=== PATIENT | female | born 1960 | race Caucasian/White ===

== ENCOUNTER → 2019-01-18 12:59 | Outpatient (CLI) | payer OTHER, SELFPAY ==
[2019-01-18 13:34] LABS: Anion Gap 10 (5-15); BUN 28 mg/dL (7-18); BUN/Creat Ratio 18.2 RATIO (10-20); Calcium,Total 9.2 mg/dL (8.5-10.1); Chloride 104 mmol/L (98-107); Creatinine, Serum 1.54 mg/dL (0.55-1.02); EST Glomerular Filtration Rate 37 mL/min (>60); Est Glom Filt Rate - Afr Amer 45 mL/min (>60); Glucose 298 mg/dL (74-106); Potassium 4.6 mmol/L (3.5-5.1); Sodium Level 139 mmol/L (136-145)
== END ==
PROVIDERS: Referring Provider Internal Medicine; Visit Provider Internal Medicine
DX: N17.9 Acute kidney failure, unspecified (principal)
CPT/HCPCS: 80048

== ENCOUNTER → 2019-01-28 11:00 | Outpatient (CLI) | payer OTHER, SELFPAY ==
--- NOTE | 2019-01-28 11:06 | US_ITS ---
STUDY: RENAL ULTRASOUND - COMPLETE REASON FOR EXAM: Female, 58 years old. Elevated BUN/creatinine TECHNIQUE: Ultrasound evaluation of the kidneys was performed with real-time and static abdalla-scale imaging. COMPARISON: None. FINDINGS: RIGHT KIDNEY: Normal location of the right kidney, which is normal in size. The right kidney measures 9.8 x 5.5 x 4.6 cm. There is a normal cortex of the right kidney. The renal cortex measures 1.1 cm. There is no right renal mass or cyst. Multiple punctate nonobstructing renal calculi. There is no right hydronephrosis. DISTAL RIGHT URETER: There is non-visualization of the distal right ureter. There is no demonstrated right ureterovesical junction calculus. There is a visualized right ureteral jet. LEFT KIDNEY: Normal location of the left kidney, which is normal in size. The left kidney measures 10.5 x 4.1 x 4.2 cm. There is a normal cortex of the left kidney. The renal cortex measures 1.1 cm. There is a 0.9 cm simple cyst , there is a nonobstructing 4 mm stone, and multiple punctate nonobstructing stones.. There is no left hydronephrosis. DISTAL LEFT URETER: There is non-visualization of the distal left ureter. There is no demonstrated left ureterovesical junction calculus. There is a visualized left ureteral jet. AORTA: There is no elongation or tortuosity of the abdominal aorta. I.V.C.: The IVC is patent. BLADDER: The distended urinary bladder has a volume of 104.55 ml. The empty urinary bladder has a volume of less than 5 ml. There is a normal wall thickness of the distended urinary bladder. There is no demonstrated mass within the urinary bladder. There are no demonstrated bladder calculi. US/Kidney and Bladder IMPRESSION: No obstructive uropathy or suspicious solid lesion. Bilateral nonobstructing nephrolithiasis, largest is in the left kidney measuring 0.4 cm. Most are punctate stones. Simple 9 mm left renal cyst Electronically Signed: Neymar Singer MD at 10:26 EST , Service support ,
== END ==
PROVIDERS: Family Provider Internal Medicine; PCP Internal Medicine; Referring Provider Internal Medicine; Visit Provider Internal Medicine
DX: N17.9 Acute kidney failure, unspecified (principal)
CPT/HCPCS: 76770

== ENCOUNTER 2019-04-15 14:33 | Observation (INO) | payer OTHER, SELFPAY ==
[2019-04-15] VITALS (9 sets, daily range): BP systolic 120–154; BP diastolic 64–104; PULSE 80–100; RESP 16–20; TEMP 36.6–36.7; O2SAT 91–96; BMI 43.1; BMI 41.9
--- NOTE | 2019-04-15 14:55 | RAD_ITS ---
STUDY: X-RAY CHEST REASON FOR EXAM: Female, 58 years old. PT HAS HAD EPISODES OF PALPITATIONS, INCREASED WEAKNESS AND SOB WITH ANY PHYSICAL EXCRETION SINCE SAT. TECHNIQUE: PA and lateral views of the chest. COMPARISON: None. FINDINGS: EKG electrodes are seen. Increased markings are seen in the lingular segment of the left upper lobe. This may represent early infiltrate. Follow-up is recommended. There is no demonstrated pleural abnormality. Normal size heart. Normal mediastinum and karthikeyan. Normal visualized pulmonary arteries. Normal visualized aortic arch and descending thoracic aorta. There are diffuse degenerative changes of the visualized thoracic spine. Normal visualized ribs, clavicles, and shoulders. There is no demonstrated abnormality of the visualized soft tissue structures of the upper abdomen. RAD/Chest PA and Lateral IMPRESSION: Increased markings in the lingular segment of the left upper lobe. Early infiltrate should be ruled out. Radiographic follow-up is recommended. Electronically Signed: Wan Haynes, at 15:56 EST , Service support ,
--- NOTE | 2019-04-15 14:55 | EKG12_ITS ---
Test Reason : CP ADMIT Blood Pressure : / mmHG Vent. Rate : 079 BPM Atrial Rate : 079 BPM P-R Int : 134 ms QRS Dur : 080 ms QT Int : 452 ms P-R-T Axes : 033 089 -62 degrees QTc Int : 518 ms Normal sinus rhythm T wave abnormality, consider inferior ischemia T wave abnormality, consider anterolateral ischemia Prolonged QT Abnormal ECG When compared with ECG of 15-APR-2019 14:53, MANUAL COMPARISON REQUIRED, DATA IS UNCONFIRMED Confirmed by BRIDGETTE SANON ([id number]), assistant film editor CANDACE GREY ([id number]) on 04/18/2019 9:53:14 AM Referred By: Jose Calderon Confirmed By:BRIDGETTE SANON
--- NOTE | 2019-04-15 14:56 | ED.VIS.DYS ---
History of Present Illness Chief Complaint: Palpitations Informant: Patient, EMS Onset: Days - 2 Activity at onset: Exertion Timing: Intermittent, Lasts - until rests Quality: Dyspnea on exertion Current Severity: Gone Maximum Severity: Severe Worsened by: Exertion - very light exertion Associated Symptoms: Negative for: Cough Chest Pain: Intermittent, Tightness - mild. exertional only. no discomfort at rest. Narrative: 58-year-old female noticed exertional palpitations and dyspnea and chest discomfort over the last several days. The dyspnea is the most prominent complaint. When she has the palpitations it feels irregular and sometimes fast. She has not felt them when at rest. She does not have a history of cardiac disease except for needing an ablation for SVT long ago. She does not remember ever having a stress test. She denies any recent illness, respiratory symptoms other than what was mentioned above, swelling in her legs, orthopnea. She is from [place], no travel out of the area. No history of DVT or PE. Does not take any anticoagulants for any reason. Due to these acute symptoms in the last couple days, she actually saw her PCP this morning. Once they heard the constellation of symptoms she was having and evaluated her, they did an EKG that showed changes compared with her old one, and promptly transferred her to the emergency department via EMS. - Past Medical History (1) Hyperlipidemia Status: Chronic (2) Hypertension Status: Chronic (3) Type 2 diabetes mellitus Status: Chronic (4) CRI (chronic renal insufficiency) Status: Chronic Past Medical History - Allergies and Home Meds Allergies/Adverse Reactions: Allergies No Known Allergies Allergy (Verified 04/15/19 14:33) Lives: Spouse/ Significant Other Smoking Status: Never smoker Drugs: None Review of Systems General: Reports: Malaise. Denies: Chills, Fever, Sweats Eyes: Denies: Visual changes - bilaterally, Diplopia ENT: Denies: Rhinorrhea, Sore throat Cardiovascular: Reports: Chest pain, Palpitations Respiratory: Reports: Dyspnea, Dyspnea on exertion. Denies: Cough, Orthopnea, Paroxysmal nocturnal dyspnea Gastrointestinal: Denies: Abdominal pain, Nausea, Vomiting, Diarrhea, Melena, Hematochezia Genitourinary: Denies: Dysuria, Hematuria, Frequency Musculoskeletal: Reports: Extremity Pain - 3 days ago left calf pain which resolved. No swelling.. Denies: Neck pain, Back pain, Swelling Skin: Denies: Rash, Wounds Neurological: Denies: Headache, Weakness, Numbness Physical Exam Vital Signs/Narrative: Vital Signs Temp Pulse Resp BP Pulse Ox 04/15/19 14:34 98.1 F 100 16 154/104 H 91 Inital Vital Signs reviewed: Yes General: Well nourished, Well developed, Obese, No Acute Distress Head: Normocephalic, Atraumatic Eyes: Perrl, EOMI ENT: Moist mucous membranes, No rhinorrhea Neck: Supple, Nontender, No JVD Cardiovascular: Regular rate, Regular rhythm, No murmurs, Normal S1, Normal S2. Negative for: Tachycardia Respiratory: No distress, CTA bilaterally - Diminished at bases. Limited due to obesity., Chest nontender Abdomen: Soft, Nontender, Nondistended, Normal bowel sounds Back: Nontender, Normal Inspection Extremities: Nontender, No edema. Negative for: Calf Tenderness Skin: Normal color, No rash, No Trauma Neurological: Alert, Oriented x3, Cranial nerves II-XII grossly intact, Normal Strength, Normal Sensation Psychological: Normal affect, Normal Mood Diagnostic/Tx/Re-eval Impressions Chest X-Ray 04/15/19 14:55 IMPRESSION: Increased markings in the lingular segment of the left upper lobe. Early infiltrate should be ruled out. Radiographic follow-up is recommended. Electronically Signed: Wan Ivy, at 15:56 EST , Service support , 04/15/19 14:55 Chest PA and Lateral [RAD] Stat Laboratory Tests 04/15/19 04/15/19 04/15/19 Range/Units 15:25 15:25 15:25 WBC 8.6 (4.4-11.0) K/mm3 RBC 5.03 (4.2-5.4) M/mm3 Hgb 14.9 (12.0-15.0) g/dL Hct 45.3 (37-47) % MCV 90.1 (81-99) fL MCH 29.6 (27.0-32.0) pg MCHC 32.9 (32-36) g/dL RDW Std Deviation 44.5 H (35.1-43.9) fl RDW Coeff of Gloria 13.8 (11.6-14.6) % Plt Count 190 (150-450) K/mm3 MPV 10.4 (6.2-12.0) fl Immature Gran % (Auto) 0.300 (0.0-0.9) % Neut % (Auto) 62.4 (47-70) % Lymph % (Auto) 29.1 (19-41) % Whitley % (Auto) 5.8 (0-10) % Eos % (Auto) 2.1 (0-5) % Baso % (Auto) 0.3 (0-1) % Absolute Neuts (auto) 5.3 (2.0-7.7) X10^3/uL Absolute Lymphs (auto) 2.50 (0.83-4.51) X10^3/uL Nucleated RBC % 0 (0-5) % D-Dimer Quant (PE/DVT) 6.63 H* (0.27-0.49) FEU/ug/m Sodium 142 (136-145) mmol/L Potassium 3.8 (3.5-5.1) mmol/L Chloride 109 H (98-107) mmol/L Carbon Dioxide 26.0 (21.0-32.0) mmol/L Anion Gap 7 (5-15) BUN 16 (7-18) mg/dL Creatinine 1.31 H (0.55-1.02) mg/dL Estim Creat Clear Calc 37.78 ml/min Est GFR (MDRD) Af Amer 53 L (>60) mL/min Est GFR (MDRD) Non-Af 44 L (>60) mL/min BUN/Creatinine Ratio 12.2 (10-20) RATIO Glucose 212 H (74-106) mg/dL Calcium 9.2 (8.5-10.1) mg/dL Troponin I 0.078 H (<0.045) ng/mL - Rhythm Strip Rhythm Strip: Sinus Rhythm Rate: 90 Ectopy: None - EKG Initial EKG Interpretation: Sinus Rhythm, No Acute Injury Pattern, Inverted T-Waves - Throughout precordium and inferior leads, - - Normal axis. Prolonged QTC. Otherwise normal intervals. Treatment - Dyspnea: - - aspirin - Medical Decision Making Patient is feeling well at rest but her symptoms and risk factors are concerning. Her EKG shows diffuse repolarization abnormalities that appears more focused inferiorly without any ST segment deviations to suggest a STEMI or obvious acute coronary syndrome. She has some nonspecific findings in the lingula of the left lower lobe that may or may not indicate early pneumonia. She denies having a cough recently. Her pulse ox is borderline. Although she does not have any specific risk for pulmonary embolus or DVT, nor clinical findings of a DVT, I obtained a d-dimer and screening for this in addition to other possibilities, and the d-dimer returned very elevated over 6. I discussed with cardiology who agreed with treating her empirically with Lovenox, aspirin, and loading her with Plavix 300 mg which was done in the ER. Discussed with hospitalist, who requests that we obtain a CT angiography of the chest while in the emergency department. Discussed with the patient. We will also hydrate her given her renal insufficiency. CT was performed, the interpretation is not yet performed but it does appear to show bilateral pulmonary emboli without a saddle embolus. Plan will be admission to PCU. We will also obtain duplex Doppler ultrasounds of the lower extremities. ED Disposition - Plan for ED Patient: Disposition: Acute Care Hospital [facility] Diagnosis: Chest pain, Elevated troponin, Acute electrocardiogram changes, Pulmonary embolism, bilateral
--- NOTE | 2019-04-15 15:08 | NURSING ---
NO OLD EKGS
[2019-04-15 15:38] LABS: Absolute Neutrophil Count 5.3 X10^3/uL (2.0-7.7); Basophil# 0.03 X10^3/uL; Basophil% 0.3 % (0-1); Eosinophil# 0.18 X10^3/uL; Eosinophils% 2.1 % (0-5); Hematocrit 45.3 % (37-47); Hemoglobin 14.9 g/dL (12.0-15.0); Lymphocyte % 29.1 % (19-41); Mean Corp Hgb Conc 32.9 g/dL (32-36); Mean Corpuscular Hgb 29.6 pg (27.0-32.0); Mean Corpuscular Volume 90.1 fL (81-99); Mean Platelet Vol. 10.4 fl (6.2-12.0); Monocyte% 5.8 % (0-10); NRBC Flagged by Analyzer 0 % (0-5); Neutrophil # 5.34 X10^3/uL (2.7-7.7); Neutrophil % 62.4 % (47-70); Platelet Count 190 K/mm3 (150-450); RBC Distribution Width CV 13.8 % (11.6-14.6); RBC Distribution Width SD 44.5 fl (35.1-43.9); Red Blood Count 5.03 M/mm3 (4.2-5.4); White Blood Count 8.6 K/mm3 (4.4-11.0)
[2019-04-15 15:53] LABS: Anion Gap 7 (5-15); BUN 16 mg/dL (7-18); BUN/Creat Ratio 12.2 RATIO (10-20); Calcium,Total 9.2 mg/dL (8.5-10.1); Chloride 109 mmol/L (98-107); Creatinine, Serum 1.31 mg/dL (0.55-1.02); EST Glomerular Filtration Rate 44 mL/min (>60); Est Glom Filt Rate - Afr Amer 53 mL/min (>60); Estimated Creatinine Clearance 37.78 ml/min; Glucose 212 mg/dL (74-106); Potassium 3.8 mmol/L (3.5-5.1); Sodium Level 142 mmol/L (136-145)
[2019-04-15 16:23] LABS: D-Dimer Quantitative (DVT/PE) 6.63 FEU/ug/m (0.27-0.49)
[2019-04-15 16:24] LABS: BNP,B-Type NATRIURETIC PEPTIDE 250.5 pg/mL (0-100)
[2019-04-15] MEDS: Aspirin 81 MG TAB.CHEW 324 MG PO (16:30)
--- NOTE | 2019-04-15 16:31 | NURSING ---
PCU OBS CP, ELEVATED TROP KOTSONIS
--- NOTE | 2019-04-15 16:39 | PCM.HP.STD ---
History of Present Illness Date of Admission: 04/15/19 Chief Complaint: SOB and CP The patient is a 58 year old F with no significant past medical history presents with shortness of breath that has been getting worse since about Monday. She does have a history of SVT and had an ablation performed but was noticing some palpitations with exertion that was resolving with rest. She was also noticing some chest pain as well as shortness of breath with exertion that was resolving with rest. She states that she is short of breath generally just because of her weight but this was more significant than it had ever been in the past. Cardiology was contacted by the ER and they recommended aspirin as well as Plavix and Lovenox. Chest x-ray was unremarkable for any significant signs of heart failure, she denies any fevers or chills. She has not had any cough recently. No orthopnea. D-dimer was elevated so she had a chest CT of the chest which is pending, her BNP was slightly elevated. EKG was unremarkable for any significant signs of ischemia. Past Medical History Past Medical History (Chronic Problems): Chronic Problems Hyperlipidemia (Chronic) Hypertension (Chronic) Type 2 diabetes mellitus (Chronic) CRI (chronic renal insufficiency) (Chronic) Allergies No Known Allergies Allergy (Verified 04/15/19 14:33) Home Medications: Ambulatory Orders Medication Instructions Recorded Atorvastatin Calcium [Lipitor] 20 mg PO QHS 04/15/19 Dulaglutide [Trulicity] 1.5 mg SQ TH 04/15/19 Glipizide 10 mg PO BID 04/15/19 Levothyroxine Sodium [Synthroid] 25 mcg PO DAILY 04/15/19 Lisinopril [Zestril] 5 mg PO DAILY 04/15/19 Oxybutynin Chloride [Oxybutynin 20 mg PO DAILY 04/15/19 Chloride ER] Surgical History: hysterectomy Smoking Status: Never smoker Tobacco Use: Non-smoker Alcohol: None Drugs: None - *Family History Maternal History Items: Diabetes Paternal History Items: Diabetes Review of Systems Constitutional: Denies: Chills, Fever, Weight Change HEENT: Denies: Head Aches, Sinus Congestion, Sinus Drainage Cardiovascular: Denies: Chest Pain, Palpitations Respiratory: Reports: Pleuritic Pain, Shortness of Breath. Denies: Cough, Shortness of breath at rest, Sputum production Gastrointestinal: Denies: Abdominal Pain, Nausea, Vomiting Genitourinary: Denies: Dysuria Musculoskeletal: Denies: Joint Pain, Joint Tenderness Skin: Denies: Rash, Wounds Neurological: Denies: Numbness, Tingling, Focal weakness Psychiatric: Denies: Anxiety, Depression Hematologic/ Lymphatic: Denies: Easy Bruising, Easy Bleeding VTE Information - Inpt Only VTE Present on Admission: No Patient Problems: Active and Suspected Problems Chest pain (Acute) Elevated troponin (Acute) Acute electrocardiogram changes (Acute) Pulmonary embolism, bilateral (Acute) - Physical Exam Vitals/I&O's: Vital Signs Temp Pulse Resp BP Pulse Ox 98.1 F 80 18 139/90 H 93 04/15/19 14:34 04/15/19 16:12 04/15/19 16:12 04/15/19 16:12 04/15/19 16:12 Oxygen Flow Rate (L/min) 2 Oxygen Delivery Method Nasal Cannula Weight: 243 lb 6.4 oz Body Mass Index (BMI) 43.1 General: Alert, Oriented x3, Cooperative, No apparent distress HEENT: Atraumatic, PERRLA, EOMI, Normocephalic Oral: Moist Mucosa Neck: Supple, No JVD Lungs: Clear to auscultation, Normal air movement, No rhonchi, No wheeze, No rales, Diminished Cardiovascular: Regular rate, Regular Rhythm, Normal S1, Normal S2, No murmurs Abdomen: Soft, Non Tender, Non-Distended, No Hepato-splenomegaly Extremities: No edema, Capillary Refill Less than 3 Seconds Skin: No rashes, No breakdown Neurological: Neuro grossly intact, Sensory exam intact to light touch and pain Psych/Mental Status: Normal Affect, Appropriate Laboratory Results 04/15/19 15:25: WBC 8.6, RBC 5.03, Hgb 14.9, Hct 45.3, MCV 90.1, MCH 29.6, MCHC 32.9, RDW Std Deviation 44.5 H, RDW Coeff of Gloria 13.8, Plt Count 190, MPV 10.4, Immature Gran % (Auto) 0.300, Neut % (Auto) 62.4, Lymph % (Auto) 29.1, [place] % (Auto) 5.8, Eos % (Auto) 2.1, Baso % (Auto) 0.3, Absolute Neuts (auto) 5.3, Absolute Lymphs (auto) 2.50, Nucleated RBC % 0 04/15/19 15:25: D-Dimer Quant (PE/DVT) 6.63 H* 04/15/19 15:25: Sodium 142, Potassium 3.8, Chloride 109 H, Carbon Dioxide 26.0, Anion Gap 7, BUN 16, Creatinine 1.31 H, Estim Creat Clear Calc 37.78, Est GFR (MDRD) Af Amer 53 L, Est GFR (MDRD) Non-Af 44 L, BUN/Creatinine Ratio 12.2, Glucose 212 H, Calcium 9.2, Troponin I 0.078 H 04/15/19 15:25: B-Natriuretic Peptide 250.5 H Assessment/Plan All Active Problems Chest pain (Acute) Elevated troponin (Acute) Acute electrocardiogram changes (Acute) Pulmonary embolism, bilateral (Acute) 1. Bilateral large pulmonary embolisms on preliminary read, radiology read is still pending -She was given a therapeutic dose of Lovenox, however will likely not need cardiology's involvement as this is the likely source of her chest pain -We will start Eliquis in the morning, 10 mg p.o. twice daily -She does need a hypercoagulable work-up at this time she can follow-up with hematology as an outpatient, she has no history of DVTs in the family -She does not smoke and she is not on control, denies any recent long distance travel 2. HLD/HTN -Can continue with her Lipitor and her lisinopril -An echo is pending to evaluate for the PEs -Troponins are trending but this was done prior to the CTA being done 3. DM 2/CKD 3/morbid obesity -She is on Trulicity and glipizide however she used to be on metformin this was discontinued because of her chronic kidney disease stage III -She should be able to resume her metformin on discharge -Discussed about lifestyle modifications DVT: Eliquis and therapeutic Lovenox Code Visit OBSV E&M: [id number] Initial observation care L3
[2019-04-15] MEDS: Clopidogrel Bisulfate 300 MG Tablet PO (16:41)
--- NOTE | 2019-04-15 16:48 | CT_ITS ---
STUDY: CTA CHEST REASON FOR EXAM: Female, 58 years old. SOB, CHEST PAIN, ELEVATED D-DIMER RADIATION DOSAGE (If Supplied By Facility): CTDIvol = ( 22.16 ) mGy, DLP = ( 477.53 ) mGycm TECHNIQUE: The examination was performed with the intravenous administration of IV 100mL Isovue-370. Post-processing of the angiographic images was performed, with multiplanar reformation and 3D reconstruction. Individualized dose optimization techniques were used for this CT. COMPARISON: Chest x-ray dated April 15, 2019 FINDINGS: There is suboptimal contrast opacification of the pulmonary arteries. Bilateral partially occlusive pulmonary artery emboli are present at the junctions of the main branches in the secondary branches and extends to the small tertiary branches of the upper and lower lobes bilaterally. No demonstrated saddle embolus. The central regions of the main pulmonary arteries are clear as well as the trunk. There is atherosclerotic calcification of the aortic arch with tortuosity. There is no demonstrated aortic dissection. Normal heart size and pericardium. Normal mediastinum. Normal hilar regions. Normal visualized trachea and bronchi. The lungs are well expanded. Mild interstitial scarring is present in both lungs mild irregular consolidation is present in the lingula as well as the anterior superior aspect of the left upper lobe. A small 4.6 mm nodule is present in the superior segment of the right lower lobe see image #119/215. No pleural effusion is present. A 7.5 mm nodule is present in lateral subpleural region of the right middle lobe see image 71/215, a 6.2 mm nodule is present in lateral subpleural region of the right lower lobe see image #71/215. A 4.5 mm nodule is present in the mid aspect and lateral aspect of the right upper lobe see image 89/215. Normal chest wall structures. There are degenerative changes of thoracic spine. Normal visualized upper abdomen. CT/CTA Chest W/WO Contrast IMPRESSION: 1. Extensive bilateral pulmonary artery emboli. 2. Four small nodules of the right middle and lower lobe. Close surveillance and follow-up is required as the nodules could represent malignancy. If there are prior imaging studies demonstrating the presence of these nodules comparison is recommended for stability. 3. Mild irregular consolidation in the left upper lobe and lingula which could be related to pneumonia, however given the presence of extensive pulmonary artery emboli the findings could also be related to infarction. N.B. : The above information has been verbally conveyed by Gil Niño MD to Dr. Kvng MD, on 04/15/2019 18:57:28 (ET). Electronically Signed: Gil Niño MD at 18:58 EST , Service support ,
[2019-04-15] MEDS: 0.9% Normal Saline 1,000 ML 999 ML IV (17:39)
[2019-04-15] MEDS: Enoxaparin 120 MG/0.8 ML Syringe 110 MG SC (17:47)
--- NOTE | 2019-04-15 18:05 | EKG12_ITS ---
Test Reason : DYSRHYTHMIA Blood Pressure : / mmHG Vent. Rate : 090 BPM Atrial Rate : 090 BPM P-R Int : 130 ms QRS Dur : 080 ms QT Int : 400 ms P-R-T Axes : 047 082 -41 degrees QTc Int : 489 ms Sinus rhythm with Premature atrial complexes T wave abnormality, consider inferior ischemia T wave abnormality, consider anterolateral ischemia Prolonged QT Abnormal ECG Confirmed by VIRGINIA STRANGE, HECTOR ([id number]), videotape editor CANDACE GREY ([id number]) on 04/17/2019 9:05:24 AM Referred By: Jose Calderon Confirmed By:HECTOR COLEMAN MD
[2019-04-15] MEDS: 0.9% Normal Saline 1,000 ML 100 ML IV (19:05)
[2019-04-15] MEDS: Insulin Lispro 100 UNIT/ML INSULN.PEN SC (21:36)
[2019-04-16] VITALS (11 sets, daily range): BP systolic 131–147; BP diastolic 77–88; PULSE 76–92; RESP 18; TEMP 36.4–36.7; O2SAT 92–97
[2019-04-16 00:16] LABS: Bedside Glucose 182 mg/dL (70-110)
[2019-04-16] MEDS: 0.9% Normal Saline 1,000 ML 100 ML IV (05:10)
--- NOTE | 2019-04-16 05:55 | ECHOD_ITS ---
Reason For Study: Dyspnea/SOB Procedure This was a 2D Doppler, Color Flow transthoracic echocardiogram. Technically difficult study due to patients body habitus. Unable to utilize Definity due to increased pressures. The study was technically difficult. Exam performed portable in patient room. Left Ventricle Normal LV size. Left ventricular systolic function is normal. The estimated ejection fraction is 60 %. Diastolic function is indeterminate. No regional wall motion abnormalities noted. Right Ventricle Normal RV size. Normal systolic function. Atria Normal left atrium. Normal right atrium. No doppler evidence for ASD. Mitral Valve There is no mitral annular calcification. Normal mitral valve. Trivial mitral valve insufficiency. Tricuspid Valve Normal tricuspid valve. Mild to moderate (1-2+) tricuspid valve insufficiency. Right ventricular systolic pressure estimated to be 82 mmHg. Aortic Valve Trisinus/trileaflet aortic valve. Normal aortic valve. Pulmonic Valve The pulmonic valve is not well visualized. Trivial pulmonic valve insufficiency. Great Vessels Normal sized aortic root. Pericardium/Pleural No pericardial effusion. MMode/2D Measurements & Calculations LVIDd: 4.3 cm IVSd: 1.2 cm Ao root diam: 3.4 cm LVIDs: 2.3 cm LVPWd: 1.2 cm LA dimension: 3.4 cm FS: 47.7 % LAV(MOD-bp): 35.5 ml LA A4 area: 15.0 cm2 RA A4 area: 12.6 cm2 LAV(MOD-bp) Indexed: 17.1 ml/m2 LAV(MOD-sp2): 33.7 ml LAV(MOD-sp4): 33.2 ml Time Measurements MV dec time: 0.23 sec Doppler Measurements & Calculations MV E max chano: 40.8 cm/sec Lat Peak E' Chano: 5.6 cm/sec Med Peak E' Chano: 5.5 cm/sec MV A max chano: 60.5 cm/sec E/E' lat: 7.3 E/E' med: 7.4 MV E/A: 0.67 MV V2 max: 61.9 cm/sec MV P1/2t max chano: 40.0 cm/sec Ao V2 max: 97.4 cm/sec MV max P.5 mmHg MV P1/2t: 88.3 msec Ao max P.8 mmHg MV V2 mean: 29.2 cm/sec MV dec slope: 132.7 cm/sec2 Ao V2 mean: 71.3 cm/sec MV mean P.41 mmHg MVA(P1/2t): 2.5 cm2 Ao mean P.2 mmHg MV V2 VTI: 15.3 cm Ao V2 VTI: 16.8 cm LV V1 max: 89.8 cm/sec PA V2 max: 45.7 cm/sec LV V1 max P.2 mmHg PI dec slope: 181.9 cm/sec2 LV V1 mean P.5 mmHg LV V1 mean: 57.1 cm/sec LV V1 VTI: 16.2 cm TR max chano: 429.9 cm/sec TR max P.9 mmHg Interpretation Summary The study was technically difficult. Left ventricular systolic function is normal. The estimated ejection fraction is 60 %. Trivial mitral valve insufficiency. Mild to moderate (1-2+) tricuspid valve insufficiency. Trivial pulmonic valve insufficiency. Right ventricular systolic pressure estimated to be 82 mmHg c/w severe pulmonary hypertension. Diastolic function is indeterminate. Ordering Physician: Jose Calderon Referring Physician: Jose Calderon Performed By: Zay Carranza RCS
[2019-04-16 06:03] LABS: Absolute Lymphocyte Count 3.22 X10^3/uL (0.83-4.51); Absolute Neutrophil Count 3.4 X10^3/uL (2.0-7.7); Basophil# 0.03 X10^3/uL; Basophil% 0.4 % (0-1); Eosinophil# 0.26 X10^3/uL; Eosinophils% 3.5 % (0-5); Hematocrit 39.9 % (37-47); Hemoglobin 12.8 g/dL (12.0-15.0); Lymphocyte # 3.22 X10^3/ul (4.0); Lymphocyte % 43.8 % (19-41); Mean Corp Hgb Conc 32.1 g/dL (32-36); Mean Corpuscular Hgb 29.3 pg (27.0-32.0); Mean Corpuscular Volume 91.3 fL (81-99); Mean Platelet Vol. 10.7 fl (6.2-12.0); Monocyte# 0.47 X10^3/uL; Monocyte% 6.4 % (0-10); NRBC Flagged by Analyzer 0 % (0-5); Neutrophil # 3.36 X10^3/uL (2.7-7.7); Neutrophil % 45.6 % (47-70); Platelet Count 167 K/mm3 (150-450); RBC Distribution Width CV 13.9 % (11.6-14.6); RBC Distribution Width SD 45.7 fl (35.1-43.9); Red Blood Count 4.37 M/mm3 (4.2-5.4); White Blood Count 7.4 K/mm3 (4.4-11.0)
[2019-04-16 06:36] LABS: Anion Gap 6 (5-15); BUN 14 mg/dL (7-18); BUN/Creat Ratio 11.6 RATIO (10-20); Chloride 112 mmol/L (98-107); Cholesterol 104 mg/dL (200); Creatinine, Serum 1.21 mg/dL (0.55-1.02); EST Glomerular Filtration Rate 48 mL/min (>60); Est Glom Filt Rate - Afr Amer 58 mL/min (>60); Glucose 175 mg/dL (74-106); High Density Lipoprotein 34 mg/dL; Potassium 3.7 mmol/L (3.5-5.1); Sodium Level 142 mmol/L (136-145); Triglycerides 189 mg/dL; Very Low Density Lipoprotein 38 mg/dL (5-40)
[2019-04-16] MEDS: APIXABAN 5 MG TABLET 10 MG PO ×2 (06:50→17:36)
[2019-04-16] MEDS: Insulin Lispro 100 UNIT/ML INSULN.PEN SC ×3 (06:51→17:33)
[2019-04-16 07:06] LABS: Bedside Glucose 164 mg/dL (70-110)
[2019-04-16 11:55] LABS: Bedside Glucose 227 mg/dL (70-110)
--- NOTE | 2019-04-16 13:01 | PCM.PROGNOTE ---
<Antonieta Gallagher - Last Filed: 04/16/19 13:31> Patient Problems: Active and Suspected Problems Chest pain (Acute) Elevated troponin (Acute) Acute electrocardiogram changes (Acute) Pulmonary embolism, bilateral (Acute) Subjective: Patient seen and examined. Continues to have dyspnea with exertion. Denies further chest pain. - Physical Exam Vitals/I&O's: Vital Signs Temp Pulse Resp BP Pulse Ox 97.6 F L 78 18 131/83 H 97 04/16/19 09:25 04/16/19 11:00 04/16/19 09:25 04/16/19 09:25 04/16/19 09:25 Oxygen Flow Rate (L/min) 1.5 Oxygen Delivery Method Room Air Weight: 236 lb 8.896 oz Body Mass Index (BMI) 41.9 Intake and Output for Last 24 Hours 04/14/19 04/15/19 04/16/19 23:59 23:59 23:59 Intake Total 0 / 0 970 / 970 Balance 2129 / 2130 970 / 970 General: Alert, Oriented x3, Cooperative HEENT: Atraumatic, PERRLA, EOMI, Normocephalic Neck: Supple, No JVD, Negative Carotid Bruits Lungs: Clear to auscultation, Diminished Cardiovascular: Regular rate, Regular Rhythm, Normal S1, Normal S2, No murmurs Abdomen: Bowel Sounds Present, Soft, Non Tender, Non-Distended Extremities: No clubbing, No cyanosis, No edema, Capillary Refill Less than 3 Seconds Skin: No rashes, No breakdown Musculoskeletal: No Tenderness to Palpation of Joints or Extremities Neurological: Cranial nerves II-XII grossly intact, Neuro grossly intact Psych/Mental Status: Normal Affect, Appropriate Laboratory Results 04/15/19 15:25: WBC 8.6, RBC 5.03, Hgb 14.9, Hct 45.3, MCV 90.1, MCH 29.6, MCHC 32.9, RDW Std Deviation 44.5 H, RDW Coeff of Gloria 13.8, Plt Count 190, MPV 10.4, Immature Gran % (Auto) 0.300, Neut % (Auto) 62.4, Lymph % (Auto) 29.1, Gulf % (Auto) 5.8, Eos % (Auto) 2.1, Baso % (Auto) 0.3, Absolute Neuts (auto) 5.3, Absolute Lymphs (auto) 2.50, Nucleated RBC % 0 04/15/19 15:25: D-Dimer Quant (PE/DVT) 6.63 H* 04/15/19 15:25: Sodium 142, Potassium 3.8, Chloride 109 H, Carbon Dioxide 26.0, Anion Gap 7, BUN 16, Creatinine 1.31 H, Estim Creat Clear Calc 37.78, Est GFR (MDRD) Af Amer 53 L, Est GFR (MDRD) Non-Af 44 L, BUN/Creatinine Ratio 12.2, Glucose 212 H, Calcium 9.2, Troponin I 0.078 H 04/15/19 15:25: B-Natriuretic Peptide 250.5 H 04/15/19 18:22: Troponin I 0.088 H 04/15/19 21:05: Troponin I 0.065 H 04/15/19 21:31: POC Glucose 182 H 04/16/19 05:20: WBC 7.4, RBC 4.37, Hgb 12.8, Hct 39.9, MCV 91.3, MCH 29.3, MCHC 32.1, RDW Std Deviation 45.7 H, RDW Coeff of Gloria 13.9, Plt Count 167, MPV 10.7, Immature Gran % (Auto) 0.300, Neut % (Auto) 45.6 L, Lymph % (Auto) 43.8 H, Gulf % (Auto) 6.4, Eos % (Auto) 3.5, Baso % (Auto) 0.4, Absolute Neuts (auto) 3.4, Absolute Lymphs (auto) 3.22, Nucleated RBC % 0 04/16/19 05:20: Sodium 142, Potassium 3.7, Chloride 112 H, Carbon Dioxide 24.0, Anion Gap 6, BUN 14, Creatinine 1.21 H, Estim Creat Clear Calc 40.90, Est GFR (MDRD) Af Amer 58 L, Est GFR (MDRD) Non-Af 48 L, BUN/Creatinine Ratio 11.6, Glucose 175 H, Calcium 8.0 L, Triglycerides 189, Cholesterol 104, LDL Cholesterol 32, VLDL Cholesterol 38, HDL Cholesterol 34 L 04/16/19 06:49: POC Glucose 164 H 04/16/19 11:39: POC Glucose 227 H Current Medications Apixaban (Eliquis) 10 mg PO 0600,1800 [facility] Last Admin: 04/16/19 06:50 Dose: 10 mg Documented by: Dextrose (D50w Syringe) 0 gm IV X1 PRN; Protocol PRN Reason: Hypoglycemia Glucagon () 1 mg IM .X1 PRN PRN Reason: Hypoglycemia Sodium Chloride () 1,000 mls @ 100 mls/hr IV .Q10H [facility] Last Admin: 04/16/19 05:10 Dose: 100 mls/hr Documented by: Insulin Human Lispro (Humalog Kwikpen (Bkc)) 0 unit SC ACHS ANY[facility]; Protocol Last Admin: 04/16/19 11:43 Dose: 4 units Documented by: Melatonin (Melatonin) 3 mg PO QHS PRN PRN PRN Reason: INSOMNIA Nitroglycerin (Nitrostat) 0.4 mg SUBLINGUAL Q5M PRN PRN Reason: CARDIAC/CHEST PAIN Ondansetron HCl (Zofran) 4 mg IV Q8H PRN PRN PRN Reason: NAUSEA/VOMITING Medical Necessity - Tobacco Use Smoking Status: Never smoker Tobacco Use: Non-smoker Assessment/Plan All Active Problems Chest pain (Acute) Elevated troponin (Acute) Acute electrocardiogram changes (Acute) Pulmonary embolism, bilateral (Acute) 1. Acute extensive bilateral PE-initiated on Eliquis. No known risk factors for PE. Will need hypercoagulable work-up and outpatient follow-up with hematology. Echocardiogram pending. Walking pulse ox prior to discharge. 2. Right middle and lower lobe lung nodules-CTA demonstrated 4 small nodules of the right middle and lower lobe. Patient will need close outpatient follow-up as these may represent malignancy. Consult pulmonary medicine to establish for further outpatient follow-up/repeat imaging. 3. Indeterminate troponin-did not trend. Suspect demand ischemia as a result of #1. No acute EKG changes. 4. Chronic kidney disease stage III-creatinine appears at baseline although minimal prior labs for comparison. Trend BMP. 5. Type 2 diabetes mellitus-oral regimen on hold. Accu-Cheks with sliding scale insulin. 6. Hypertension-stable, continue lisinopril regimen. 7. Hypothyroidism-continue Synthroid regimen. 8. Hyperlipidemia-continue statin. 9. Morbid obesity-encouraged diet and lifestyle modifications. DVT prophylaxis-Eliquis This patient was seen by MEENA Gaines under the supervision of Dr. Restrepo. <Rosalba Whitfield - Last Filed: 04/16/19 16:55> - Physical Exam Vitals/I&O's: Vital Signs Temp Pulse Resp BP Pulse Ox 97.6 F L 84 18 147/85 H 97 04/16/19 15:25 04/16/19 15:40 04/16/19 15:25 04/16/19 15:25 04/16/19 15:25 Oxygen Flow Rate (L/min) 1.5 Oxygen Delivery Method Nasal Cannula Weight: 107.3 kg Body Mass Index (BMI) 41.9 Intake and Output for Last 24 Hours 04/14/19 04/15/19 04/16/19 23:59 23:59 23:59 Intake Total 2129 1861.67 / 186.67 Balance 2129. / 1860. Laboratory Results 04/15/19 18:22: Troponin I 0.088 H 04/15/19 21:05: Troponin I 0.065 H 04/15/19 21:31: POC Glucose 182 H 04/16/19 05:20: WBC 7.4, RBC 4.37, Hgb 12.8, Hct 39.9, MCV 91.3, MCH 29.3, MCHC 32.1, RDW Std Deviation 45.7 H, RDW Coeff of Gloria 13.9, Plt Count 167, MPV 10.7, Immature Gran % (Auto) 0.300, Neut % (Auto) 45.6 L, Lymph % (Auto) 43.8 H, Gulf % (Auto) 6.4, Eos % (Auto) 3.5, Baso % (Auto) 0.4, Absolute Neuts (auto) 3.4, Absolute Lymphs (auto) 3.22, Nucleated RBC % 0 04/16/19 05:20: Sodium 142, Potassium 3.7, Chloride 112 H, Carbon Dioxide 24.0, Anion Gap 6, BUN 14, Creatinine 1.21 H, Estim Creat Clear Calc 40.90, Est GFR (MDRD) Af Amer 58 L, Est GFR (MDRD) Non-Af 48 L, BUN/Creatinine Ratio 11.6, Glucose 175 H, Calcium 8.0 L, Triglycerides 189, Cholesterol 104, LDL Cholesterol 32, VLDL Cholesterol 38, HDL Cholesterol 34 L 04/16/19 06:49: POC Glucose 164 H 04/16/19 11:39: POC Glucose 227 H Current Medications Apixaban (Eliquis) 10 mg PO 0600,1800 [facility] Last Admin: 04/16/19 06:50 Dose: 10 mg Documented by: Dextrose (D50w Syringe) 0 gm IV X1 PRN; Protocol PRN Reason: Hypoglycemia Glucagon () 1 mg IM .X1 PRN PRN Reason: Hypoglycemia Insulin Human Lispro (Humalog Kwikpen (Bkc)) 0 unit SC ACHS [facility]; Protocol Last Admin: 04/16/19 11:43 Dose: 4 units Documented by: Melatonin (Melatonin) 3 mg PO QHS PRN PRN PRN Reason: INSOMNIA Nitroglycerin (Nitrostat) 0.4 mg SUBLINGUAL Q5M PRN PRN Reason: CARDIAC/CHEST PAIN Ondansetron HCl (Zofran) 4 mg IV Q8H PRN PRN PRN Reason: NAUSEA/VOMITING Assessment/Plan This patient was seen in conjunction with Antonieta Gallagher UI LEAD DEVELOPER. I have independently interviewed and examined the patient and reviewed pertinent historical, laboratory, and other data. Please refer to her note for patient's presentation, findings, and recommendations. Patient was seen and examined. She remains on 3 L of oxygen. Doppler ultrasound of the left lower extremity is positive for left peroneal DVT Denies any chest pain or dizziness Vitals were reviewed -stable Physical Exam: Gen: Wheeze, on 3 L of oxygen, comfortable,, not pale, not jaundiced, alert oriented x3 CVS:HS I +II, regular, no murmurs RESP: Diminished at lung bases GI: BS present and normal, nontender, no palpable organs EXT:No edema Labs reviewed: ASSESSMENT: 1. Acute extensive bilateral PE, history of left lower extremity DVT 3. Right middle and lower lobe nodules 3. Indeterminant troponin 4. CKD stage III 5. Type II DM 6. Hypertension 7. Hypothyroidism 8. Hyperlipidemia 9. With obesity Meds reviewed Plan: Continue on Eliquis Continue to wean off oxygen for more than 94%, encourage incentive spirometer Code Visit Inpatient E&M: 26712 Subs Hosp L2
--- NOTE | 2019-04-16 13:09 | VDLE_ITS ---
Reason For Study: Pulmonary embolism RIGHT LEFT GSV is normal. GSV is normal. CFV is compressible, spontaneous, phasic, CFV is compressible, spontaneous, phasic, competent and demonstrates normal competent, and demonstrates normal augmentation. augmentation. FV is compressible, spontaneous, phasic, FV is compressible, spontaneous, phasic, competent and demonstrates normal competent and demonstrates normal augmentation. augmentation. POP V is compressible, spontaneous, phasic, POP V is compressible, spontaneous, phasic, competent and demonstrates normal competent and demonstrates normal augmentation. augmentation. T/P Trunk is compressible. T/P Trunk is compressible. PTV is compressible. PTV is compressible. RT PerV is compressible. Acute deep vein thrombosis is noted in the Procedure left peroneal vein. Exam performed in department. A preliminary report was called and/or faxed to [facility]. Interpretation Summary There is no evidence of right lower extremity deep vein thrombosis. Right great saphenous vein appears patent and compressible segmentally. Acute deep venous thrombosis left peroneal vein Patent and compressible left great saphenous vein Ordering Physician: Antonieta Gallagher Referring Physician: Magali Curran M.D. Performed By: Theresa Lyn RVT
--- NOTE | 2019-04-16 15:36 | PCM.CONS.PUL ---
Reason for Consult Date of Consultation: 04/16/19 Reason for Consultation: Submassive PE History of Present Illness: The patient is a 58 year old F, with past medical history listed below, who presented was [facility] on 04/15/2019 secondary to exertional dyspnea and palpitations. Patient felt that her palpitations were irregular and sometimes fast. These were made worse with exertion. Patient denied any recent illness, respiratory symptoms, constitutional symptoms such as fever, chills, nausea or vomiting. Patient had noted some swelling in her legs and some orthopnea. Patient did report that she travels to [place] frequently to babysit her grandchildren. Patient denied any previous history of blood clots such as DVT or PE. Patient does not take any anticoagulants. Patient states that she had a hysterectomy in the past. Patient has never had a colonoscopy and has not completed occult blood studies. Patient does report that she gets her mammograms regularly. In the ER, patient's d-dimer was elevated at 6.63 and creatinine was noted at 1.31. Troponin was slightly elevated 0.078 and BNP was elevated. Patient had borderline pulse oximetry. Patient was treated empirically and CTA of the chest was obtained showing extensive bilateral PEs. Patient was admitted to the floor for further evaluation. Given concerns for hypoxia and submassive PE, pulmonary consult was obtained. 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 Patient does state that she tends to take frequent trips to [place], but also has had decreased activity recently secondary to complications associated with the varicella vaccine. Patient had noted some left lower extremity pain and slight swelling, but did not seek any medical attention. Patient denies any history of previous blood clots. No family history of blood clots have been reported. Patient denies any history of positive TB testing. Patient does report that she has had dyspnea on exertion for quite some time, but thought this was just secondary to obesity. Patient has never seen a client development consultant or had pulmonary function testing. Patient is not treated for sleep apnea at this time. Review of systems otherwise negative from a constitutional, HEENT, respiratory, cardiovascular, GI, genitourinary, musculoskeletal, skin, neurologic, psychiatric and hematologic system unless stated above. Past Medical History Past Medical History (Chronic Problems): Chronic Problems Hyperlipidemia (Chronic) Hypertension (Chronic) Type 2 diabetes mellitus (Chronic) CRI (chronic renal insufficiency) (Chronic) Allergies No Known Allergies Allergy (Verified 04/15/19 14:33) Home Medications: Ambulatory Orders Medication Instructions Recorded Atorvastatin Calcium [Lipitor] 20 mg PO QHS 04/15/19 Dulaglutide [Trulicity] 1.5 mg SQ TH 04/15/19 Glipizide 10 mg PO BID 04/15/19 Levothyroxine Sodium [Synthroid] 25 mcg PO DAILY 04/15/19 Lisinopril [Zestril] 5 mg PO DAILY 04/15/19 Oxybutynin Chloride [Oxybutynin 20 mg PO DAILY 04/15/19 Chloride ER] Apixaban [Eliquis] 10 mg PO 0600,1800 #72 tab 04/16/19 Surgical History: hysterectomy Lives: Spouse/ Significant Other Smoking Status: Never smoker Tobacco Use: Non-smoker Alcohol: None Drugs: None - *Family History Maternal History Items: Diabetes Paternal History Items: Diabetes Review of Systems Comment: See HPI Patient Problems: Active and Suspected Problems Chest pain (Acute) Elevated troponin (Acute) Acute electrocardiogram changes (Acute) Pulmonary embolism, bilateral (Acute) Objective: Echocardiogram shows an EF of 60% with no regional wall motion abnormalities. No ASD was appreciated. Pulmonary artery systolic pressure estimated at 82 mmHg. Renal ultrasound shows no obstructive uropathy with a simple left renal cyst. Many punctate stones noted Patient with no previous pulmonary function tests available for review. - Physical Exam Vitals/I&O's: Vital Signs Temp Pulse Resp BP Pulse Ox 36.4 C L 78 18 131/83 H 97 04/16/19 09:25 04/16/19 11:00 04/16/19 09:25 04/16/19 09:25 04/16/19 09:25 Oxygen Flow Rate (L/min) 1.5 Oxygen Delivery Method Room Air Weight: 107.3 kg Body Mass Index (BMI) 41.9 Intake and Output for Last 24 Hours 04/14/19 04/15/19 04/16/19 23:59 23:59 23:59 Intake Total 2129 1861.67 / 1860.67 Balance 2129. / General: Alert, Oriented x3, Cooperative, No apparent distress, - - Morbidly obese. Speaking in full sentences. Nasal cannula in place. HEENT: Atraumatic, PERRLA, EOMI, Normocephalic, - - Slight scleral injection without icterus Oral: Moist Mucosa, No Gingival or Mucosal Lesions/ Ulcerations Neck: Supple, No JVD, No Nodes, Trachea Midline Lungs: No rhonchi, No wheeze, No rales, Diminished, - - Symmetric expansion. No dullness to percussion. Cardiovascular: Regular rate, Regular Rhythm, Normal S1, Murmur - Grade 2 out of 6 diastolic murmur noted in the left sternal border, No rub noted, No Gallop, - - Splitting of S2 noted. Abdomen: Bowel Sounds Present, Soft, Non Tender, Non-Distended, Obese Extremities: No clubbing, No cyanosis, Edema - Trace left lower extremity Skin: No rashes, No breakdown Musculoskeletal: No Tenderness to Palpation of Joints or Extremities Lymphatic: No Cervical, Supraclavicular, or Inguinal Adenopathy Neurological: Cranial nerves II-XII grossly intact, Neuro grossly intact, Motor Exam 5/5 strength throughout Psych/Mental Status: Alert and oriented to time, place, person, mood and affect Laboratory Results 04/15/19 15:25: WBC 8.6, RBC 5.03, Hgb 14.9, Hct 45.3, MCV 90.1, MCH 29.6, MCHC 32.9, RDW Std Deviation 44.5 H, RDW Coeff of Gloria 13.8, Plt Count 190, MPV 10.4, Immature Gran % (Auto) 0.300, Neut % (Auto) 62.4, Lymph % (Auto) 29.1, Sandoval % (Auto) 5.8, Eos % (Auto) 2.1, Baso % (Auto) 0.3, Absolute Neuts (auto) 5.3, Absolute Lymphs (auto) 2.50, Nucleated RBC % 0 04/15/19 15:25: D-Dimer Quant (PE/DVT) 6.63 H* 04/15/19 15:25: Sodium 142, Potassium 3.8, Chloride 109 H, Carbon Dioxide 26.0, Anion Gap 7, BUN 16, Creatinine 1.31 H, Estim Creat Clear Calc 37.78, Est GFR (MDRD) Af Amer 53 L, Est GFR (MDRD) Non-Af 44 L, BUN/Creatinine Ratio 12.2, Glucose 212 H, Calcium 9.2, Troponin I 0.078 H 04/15/19 15:25: B-Natriuretic Peptide 250.5 H 04/15/19 18:22: Troponin I 0.088 H 04/15/19 21:05: Troponin I 0.065 H 04/15/19 21:31: POC Glucose 182 H 04/16/19 05:20: WBC 7.4, RBC 4.37, Hgb 12.8, Hct 39.9, MCV 91.3, MCH 29.3, MCHC 32.1, RDW Std Deviation 45.7 H, RDW Coeff of Gloria 13.9, Plt Count 167, MPV 10.7, Immature Gran % (Auto) 0.300, Neut % (Auto) 45.6 L, Lymph % (Auto) 43.8 H, Sandoval % (Auto) 6.4, Eos % (Auto) 3.5, Baso % (Auto) 0.4, Absolute Neuts (auto) 3.4, Absolute Lymphs (auto) 3.22, Nucleated RBC % 0 04/16/19 05:20: Sodium 142, Potassium 3.7, Chloride 112 H, Carbon Dioxide 24.0, Anion Gap 6, BUN 14, Creatinine 1.21 H, Estim Creat Clear Calc 40.90, Est GFR (MDRD) Af Amer 58 L, Est GFR (MDRD) Non-Af 48 L, BUN/Creatinine Ratio 11.6, Glucose 175 H, Calcium 8.0 L, Triglycerides 189, Cholesterol 104, LDL Cholesterol 32, VLDL Cholesterol 38, HDL Cholesterol 34 L 04/16/19 06:49: POC Glucose 164 H 04/16/19 11:39: POC Glucose 227 H Current Medications Apixaban (Eliquis) 10 mg PO 0600,1800 [facility] Last Admin: 04/16/19 06:50 Dose: 10 mg Documented by: Dextrose (D50w Syringe) 0 gm IV X1 PRN; Protocol PRN Reason: Hypoglycemia Glucagon () 1 mg IM .X1 PRN PRN Reason: Hypoglycemia Insulin Human Lispro (Humalog Kwikpen (Bkc)) 0 unit SC ACHS [facility]; Protocol Last Admin: 04/16/19 11:43 Dose: 4 units Documented by: Melatonin (Melatonin) 3 mg PO QHS PRN PRN PRN Reason: INSOMNIA Nitroglycerin (Nitrostat) 0.4 mg SUBLINGUAL Q5M PRN PRN Reason: CARDIAC/CHEST PAIN Ondansetron HCl (Zofran) 4 mg IV Q8H PRN PRN PRN Reason: NAUSEA/VOMITING Clinical Impression(s) from Imaging Studies Chest X-Ray 04/15/19 14:55 IMPRESSION: Increased markings in the lingular segment of the left upper lobe. Early infiltrate should be ruled out. Radiographic follow-up is recommended. Electronically Signed: Wan Ivy, at 15:56 EST , Service support , Chest CTA 04/15/19 16:48 IMPRESSION: 1. Extensive bilateral pulmonary artery emboli. 2. Four small nodules of the right middle and lower lobe. Close surveillance and follow-up is required as the nodules could represent malignancy. If there are prior imaging studies demonstrating the presence of these nodules comparison is recommended for stability. 3. Mild irregular consolidation in the left upper lobe and lingula which could be related to pneumonia, however given the presence of extensive pulmonary artery emboli the findings could also be related to infarction. N.B. : The above information has been verbally conveyed by Gli Niño MD to Dr. Kvng MD, on 04/15/2019 18:57:28 (ET). Electronically Signed: Gil Niño MD at 18:58 EST , Service support , ADDENDUM: 04/15/19 1905 IMPRESSION: 1. Extensive bilateral pulmonary artery emboli. 2. Four small nodules of the right middle and lower lobe. Close surveillance and follow-up is required as the nodules could represent malignancy. If there are prior imaging studies demonstrating the presence of these nodules comparison is recommended for stability. 3. Mild irregular consolidation in the left upper lobe and lingula which could be related to pneumonia, however given the presence of extensive pulmonary artery emboli the findings could also be related to infarction. N.B. : The above information has been verbally conveyed by Gli Niño MD to Dr. Kvng MD, on 04/15/2019 18:57:28 (ET). Electronically Signed: Gil Niño MD at 18:58 EST , Service support , Assessment/Plan All Active Problems Chest pain (Acute) Elevated troponin (Acute) Acute electrocardiogram changes (Acute) Pulmonary embolism, bilateral (Acute) RECOMMENDATIONS: 1. Continue anticoagulation 2. Walking oximetry prior to discharge 3. Outpatient complete pulmonary function test 4. Repeat CT scan of the chest in 4 months 5. Outpatient colonoscopy and other age-appropriate cancer surveillance 6. Follow-up with nurse practitioner 2 weeks after discharge. IMPRESSIONS: 1. Acute hypoxic respiratory insufficiency secondary to submassive PE Patient with elevated troponins, BNP and pulmonary artery pressures. Patient will need a repeat echocardiogram in 4 to 6 weeks to document resolution. Given high pulmonary artery pressures, there is some concern the patient may require supplemental oxygen with exertion. Patient would be at high risk for exertional hypoxemia. PEs do account for scattered groundglass, possible nodules and indeterminate troponin. 2. Pulmonary nodules Patient with several subcentimeter nodules noted on CT scan of the chest. These are peripherally located and may indicate small infarcts versus possible metastasis. Patient has not had a colonoscopy or fecal occult blood. Investigation as an outpatient would be appropriate. We will repeat CT scan in 3 to 4 months to see if there is resolution of nodules. 3. CKD stage III/diabetes mellitus/hypertension/hypothyroidism/hyperlipidemia/morbid obesity Complicates care, management, recovery and prognosis. Code Visit [id number]: [id number] Critical care first hour
--- NOTE | 2019-04-16 15:45 | CASEMGMT ---
AZUCENA CM Note: Call to [facility]. Eliquis is no cost for first 30 days, and then copay would be $80 and eligible for the copay card. Pt was updated and copay card was given to her and explained. Pt states she received text message from her insurance stating the Eliquis would be over $500, but per [facility] (called second time to verify)- they ran the claim through and copay was $80. Pt did not have further questions. Julian ARMSTRONG RN ACM
[2019-04-16 18:06] LABS: Bedside Glucose 210 mg/dL (70-110)
[2019-04-16 22:26] LABS: Bedside Glucose 147 mg/dL (70-110)
[2019-04-17] VITALS (8 sets, daily range): BP systolic 145–149; BP diastolic 92–93; PULSE 66–80; RESP 16–18; TEMP 36.4; O2SAT 89–96
[2019-04-17] MEDS: APIXABAN 5 MG TABLET 10 MG PO (06:44)
[2019-04-17 06:55] LABS: Bedside Glucose 142 mg/dL (70-110)
--- NOTE | 2019-04-17 09:45 | PN_ITS ---
Patient Problems: Active and Suspected Problems Chest pain (Acute) Elevated troponin (Acute) Acute electrocardiogram changes (Acute) Pulmonary embolism, bilateral (Acute) Subjective: Patient did well overnight. No acute issues were reported. Patient was on minimal nasal cannula oxygen this morning and still reporting some dyspnea on exertion, but subjectively felt improved. No bleeding has been reported - Physical Exam Vitals/I&O's: Vital Signs Temp Pulse Resp BP Pulse Ox 36.4 C L 77 18 149/92 H 92 04/17/19 03:25 04/17/19 07:05 04/17/19 03:25 04/17/19 03:25 04/17/19 08:50 Oxygen Flow Rate (L/min) 2 Oxygen Delivery Method Room Air Weight: 107.3 kg Body Mass Index (BMI) 41.9 Intake and Output for Last 24 Hours 04/15/19 04/16/19 04/17/19 23:59 23:59 23:59 Intake Total 2130 / 2130 2461.67 / 2461.67 100 / 100 Balance 2130 / 2130 2461.67 / 2461.67 100 / 100 General: Alert, Oriented x3, Cooperative, No apparent distress, - - Morbidly obese. Speaking in full sentences. HEENT: Atraumatic, PERRLA, EOMI, Normocephalic, - - No scleral icterus or injection noted Oral: Moist Mucosa, No Gingival or Mucosal Lesions/ Ulcerations, - - Crowded posterior pharynx Neck: Supple, No JVD, No Nodes, Trachea Midline Lungs: No rhonchi, No wheeze, No rales, Diminished, - - Symmetric expansion. No dullness to percussion. Cardiovascular: Regular rate, Regular Rhythm, Normal S1, Normal S2, Murmur, No rub noted, No Gallop Abdomen: Bowel Sounds Present, Soft, Non Tender, Non-Distended, Obese Extremities: No clubbing, No cyanosis, Capillary Refill Less than 3 Seconds, Edema Skin: No rashes, No breakdown Musculoskeletal: No Tenderness to Palpation of Joints or Extremities Lymphatic: No Cervical, Supraclavicular, or Inguinal Adenopathy Neurological: Cranial nerves II-XII grossly intact, Neuro grossly intact, Motor Exam 5/5 strength throughout Psych/Mental Status: Alert and oriented to time, place, person, mood and affect Laboratory Results 04/16/19 11:39: POC Glucose 227 H 04/16/19 17:29: POC Glucose 210 H 04/16/19 22:14: POC Glucose 147 H 04/17/19 06:48: POC Glucose 142 H Current Medications Apixaban (Eliquis) 10 mg PO 0600,1800 [facility] Last Admin: 04/17/19 06:44 Dose: 10 mg Documented by: Dextrose (D50w Syringe) 0 gm IV X1 PRN; Protocol PRN Reason: Hypoglycemia Glucagon () 1 mg IM .X1 PRN PRN Reason: Hypoglycemia Insulin Human Lispro (Humalog Kwikpen (Bkc)) 0 unit SC ACHS [facility]; Protocol Last Admin: 04/17/19 06:49 Dose: Not Given Documented by: Melatonin (Melatonin) 3 mg PO QHS PRN PRN PRN Reason: INSOMNIA Nitroglycerin (Nitrostat) 0.4 mg SUBLINGUAL Q5M PRN PRN Reason: CARDIAC/CHEST PAIN Ondansetron HCl (Zofran) 4 mg IV Q8H PRN PRN PRN Reason: NAUSEA/VOMITING Medical Necessity - Tobacco Use Smoking Status: Never smoker Tobacco Use: Non-smoker Assessment/Plan All Active Problems Chest pain (Acute) Elevated troponin (Acute) Acute electrocardiogram changes (Acute) Pulmonary embolism, bilateral (Acute) RECOMMENDATIONS: 1. Continue anticoagulation for at least 6 months 2. Walking oximetry prior to discharge 3. Outpatient complete pulmonary function test 4. Repeat CT scan of the chest in 4 months 5. Outpatient colonoscopy and other age-appropriate cancer surveillance 6. Follow-up with nurse practitioner 2 weeks after discharge. IMPRESSIONS: 1. Acute hypoxic respiratory insufficiency secondary to submassive PE Patient with elevated troponins, BNP and pulmonary artery pressures. Marion ent will need a repeat echocardiogram in 4 to 6 weeks to document resolution. Given high pulmonary artery pressures, there is some concern the patient may require supplemental oxygen with exertion. Walking oximetry has been ordered. PEs may account for scattered groundglass, possible nodules and indeterminate troponin. However would recommend repeat CT scan in 4 months to ensure resolution. 2. Pulmonary nodules Patient with several subcentimeter nodules noted on CT scan of the chest. These are peripherally located and may indicate small infarcts versus possible metastasis. Patient has not had a colonoscopy or fecal occult blood. Investigation as an outpatient would be appropriate. We will repeat CT scan in 3 to 4 months to see if there is resolution of nodules. 3. CKD stage III/diabetes mellitus/hypertension/hypothyroidism/hyperlipidemia/morbid obesity Complicates care, management, recovery and prognosis. Code Visit Inpatient E&M: 73684 Subs Hosp L2
[2019-04-17] MEDS: Insulin Lispro 100 UNIT/ML INSULN.PEN SC (10:43)
--- NOTE | 2019-04-17 11:14 | DCINST_ITS ---
- Discharge Diagnoses Current Active Problems: Current Active and Chronic Problems Hyperlipidemia (Chronic) Hypertension (Chronic) Type 2 diabetes mellitus (Chronic) CRI (chronic renal insufficiency) (Chronic) Pulmonary embolism, bilateral (Acute) You will use the following diet at home:: Calorie/Carbohydrate Controlled (specify 1200, 1400, etc), Cardiac Discharge Activity: Return to Normal Activity Call your doctor if you observe: Shortness of breath, Dizziness, Fainting spells, Chest pain Additional Instructions: We discussed referral for nephrology and female urology. Please see options below if you wish to transition to a different provider. Allergies/Adverse Reactions: Allergies No Known Allergies Allergy (Verified 04/15/19 14:33) Medications to take at Discharge Atorvastatin Calcium [Lipitor] 20 mg PO QHS 04/15/19 Dulaglutide [Trulicity] 1.5 mg SQ TH 04/15/19 Glipizide 10 mg PO BID 04/15/19 Levothyroxine Sodium [Synthroid] 25 mcg PO DAILY 04/15/19 Oxybutynin Chloride [Oxybutynin Chloride ER] 20 mg PO DAILY 04/15/19 Apixaban [Eliquis] 10 mg PO 0600,1800 #72 tab 04/16/19 Lisinopril [Zestril] 10 mg PO DAILY #30 tab 04/17/19 The following prescriptions were given: Apixaban [Eliquis] 10 mg PO 0600,1800 #72 tab Transmission Status: Received by [facility] Lisinopril [Zestril] 10 mg PO DAILY #30 tab Transmission Status: Pending to [facility] Primary Care Physician: Magali Curran DO [Primary Care Provider] - Please follow up with your Primary Care Physician in: 1 Week Test Results: Test results from this visit will be discussed in further detail at your follow- up appointment, if applicable. Please Follow Up With: Abena Melchor NP-C - Dr. Giles- Pulmonary office When: 2 Weeks Please Follow Up With: Malena Sanchez MD - Female urology When: [phone] Please Follow Up With: June Guzman DO - Nephrology When: [phone] Proposed Discharge Date: 04/17/19
--- NOTE | 2019-04-17 11:19 | DS.PCM_ITS ---
<Antonieta Gallagher - Last Filed: 04/17/19 12:10> Discharge Date and Diagnosis Date of Admission: 04/15/19 Date of Discharge: 04/17/19 - Primary Discharge Diagnosis Active and Suspected Problems 1. Acute extensive bilateral PE 2. Right middle and lower lobe lung nodules 3. Indeterminate troponin-did not trend. Suspect demand ischemia as a result of #1. No acute EKG changes. 4. Chronic kidney disease stage III 5. Type 2 diabetes mellitus 6. Hypertension 7. Hypothyroidism 8. Hyperlipidemia 9. Morbid obesity 10. Suspected DAVID - Secondary Discharge Diagnosis Chronic Problems Hyperlipidemia (Chronic) Hypertension (Chronic) Type 2 diabetes mellitus (Chronic) CRI (chronic renal insufficiency) (Chronic) Hospital Course and Treatment Imaging Results: Diagnostic Data Chest X-Ray 04/15/19 14:55 IMPRESSION: Increased markings in the lingular segment of the left upper lobe. Early infiltrate should be ruled out. Radiographic follow-up is recommended. Electronically Signed: Wan Haynes, at 15:56 EST , Service support , Chest CTA 04/15/19 16:48 IMPRESSION: 1. Extensive bilateral pulmonary artery emboli. 2. Four small nodules of the right middle and lower lobe. Close surveillance and follow-up is required as the nodules could represent malignancy. If there are prior imaging studies demonstrating the presence of these nodules comparison is recommended for stability. 3. Mild irregular consolidation in the left upper lobe and lingula which could be related to pneumonia, however given the presence of extensive pulmonary artery emboli the findings could also be related to infarction. N.B. : The above information has been verbally conveyed by Gil Niño MD to Dr. Kvng MD, on 04/15/2019 18:57:28 (ET). Electronically Signed: Gil Niño MD at 18:58 EST , Service support , ADDENDUM: 04/15/19 1905 IMPRESSION: 1. Extensive bilateral pulmonary artery emboli. 2. Four small nodules of the right middle and lower lobe. Close surveillance and follow-up is required as the nodules could represent malignancy. If there are prior imaging studies demonstrating the presence of these nodules comparison is recommended for stability. 3. Mild irregular consolidation in the left upper lobe and lingula which could be related to pneumonia, however given the presence of extensive pulmonary artery emboli the findings could also be related to infarction. N.B. : The above information has been verbally conveyed by Gil Niño MD to Dr. Kvng MD, on 04/15/2019 18:57:28 (ET). Electronically Signed: Gil Niño MD at 18:58 EST , Service support , Dr. Giles- Pulmonary Medicine Operations: None Procedures: 2-D Echocardiogram Summary of Care Provided: The patient is a 58 year old F admitted 04/15/2019 due to shortness of breath and chest pain. 1. Acute extensive bilateral PE-initiated on Eliquis, patient will take 10 mg twice daily for 7 days followed by 5 mg twice daily. Will need hypercoagulable work-up as outpatient. Echocardiogram demonstrates an EF of 60%, mild to mo derate tricuspid valve insufficiency, RVSP estimated to be 82 mmHg. Patient did not qualify for supplemental oxygen at discharge however pulmonary medicine recommending short-term supplemental oxygen given PA pressure 80 mmHg. Patient will decide if she would like to pay [id number] to have short-term supplemental oxygen at home for use with ambulation. Follow-up with pulmonary medicine in 2 weeks. Patient also needs follow-up with primary care provider for colonoscopy/fecal occult blood and routine preventative screening. 2. Right middle and lower lobe lung nodules-CTA demonstrated 4 small nodules of the right middle and lower lobe. Dr. Giles, pulmonary medicine consulted during admission. Follow-up with Abena Melchor NP in 2 weeks. Patient will need repeat CT scan in 4 months to follow nodules. 3. Indeterminate troponin-did not trend. Suspect demand ischemia as a result of #1. No acute EKG changes. 4. Chronic kidney disease stage III-creatinine appears at baseline although minimal prior labs for comparison. Trend BMP. 5. Type 2 diabetes mellitus-continue home regimen. 6. Hypertension-mildly elevated during admission, home lisinopril regimen increased to 10 mg daily. Further outpatient monitoring. 7. Hypothyroidism-continue Synthroid regimen. 8. Hyperlipidemia-continue statin. 9. Morbid obesity-encouraged diet and lifestyle modifications. 10. Suspected DAVID-patient was referred for sleep study in the past which she has not yet completed. Follow-up with pulmonary medicine as noted above. Recommend outpatient sleep study. General: Alert, Oriented x3, Cooperative HEENT: Atraumatic, PERRLA, EOMI, Normocephalic Neck: Supple, No JVD, Negative Carotid Bruits Lungs: Clear to auscultation, Diminished Cardiovascular: Regular rate, Regular Rhythm, Normal S1, Normal S2, No murmurs Abdomen: Bowel Sounds Present, Soft, Non Tender, Non-Distended Extremities: No clubbing, No cyanosis, No edema, Capillary Refill Less than 3 Seconds Skin: No rashes, No breakdown Musculoskeletal: No Tenderness to Palpation of Joints or Extremities Neurological: Cranial nerves II-XII grossly intact, Neuro grossly intact Psych/Mental Status: Normal Affect, Appropriate Patient seen and examined prior to discharge. Physical assessment as noted above. Patient is stable for discharge with follow up recommendations as noted above. This patient was seen by MEENA Gaines under the supervision of Dr. Restrepo. - Physical Exam Vitals/I&O's: Vital Signs Temp Pulse Resp BP Pulse Ox 97.6 F L 77 18 149/92 H 93 04/17/19 03:25 04/17/19 07:05 04/17/19 03:25 04/17/19 03:25 04/17/19 10:19 Oxygen Flow Rate (L/min) 2 Oxygen Delivery Method Room Air Weight: 236 lb 8.896 oz Body Mass Index (BMI) 41.9 Intake and Output for Last 24 Hours 04/15/19 04/16/19 04/17/19 23:59 23:59 23:59 Intake Total 2129 / 0 2461.67 / 2461.67 100 / 100 Balance 213 / 0 2461.67 / 2461.67 100 / 100 Laboratory Results 04/16/19 11:39: POC Glucose 227 H 04/16/19 17:29: POC Glucose 210 H 04/16/19 22:14: POC Glucose 147 H 04/17/19 06:48: POC Glucose 142 H Current Medications Apixaban (Eliquis) 10 mg PO 0600,1800 [facility] Last Admin: 04/17/19 06:44 Dose: 10 mg Documented by: Dextrose (D50w Syringe) 0 gm IV X1 PRN; Protocol PRN Reason: Hypoglycemia Glucagon () 1 mg IM .X1 PRN PRN Reason: Hypoglycemia Insulin Human Lispro (Humalog Kwikpen (Bkc)) 0 unit SC [facility]; Protocol Last Admin: 04/17/19 10:43 Dose: 4 units Documented by: Melatonin (Melatonin) 3 mg PO QHS PRN PRN PRN Reason: INSOMNIA Nitroglycerin (Nitrostat) 0.4 mg SUBLINGUAL Q5M PRN PRN Reason: CARDIAC/CHEST PAIN Ondansetron HCl (Zofran) 4 mg IV Q8H PRN PRN PRN Reason: NAUSEA/VOMITING Discharge Diet: Low fat/ Low Cholesterol, 1800 Calorie Control Diet, Carb Control Diet Discharge Activity: Return to Normal Activity Call your doctor if you observe: Shortness of breath, Dizziness, Fainting spells, Chest pain Home Medications: Medications to take at Discharge Atorvastatin Calcium [Lipitor] 20 mg PO QHS 04/15/19 Dulaglutide [Trulicity] 1.5 mg SQ TH 04/15/19 Glipizide 10 mg PO BID 04/15/19 Levothyroxine Sodium [Synthroid] 25 mcg PO DAILY 04/15/19 Oxybutynin Chloride [Oxybutynin Chloride ER] 20 mg PO DAILY 04/15/19 Apixaban [Eliquis] 10 mg PO 0600,1800 #72 tab 04/16/19 Lisinopril [Zestril] 10 mg PO DAILY #30 tab 04/17/19 Following Prescrptions Were Given to Patient: Apixaban [Eliquis] 10 mg PO 0600,1800 #72 tab Transmission Status: Received by [facility] Lisinopril [Zestril] 10 mg PO DAILY #30 tab Transmission Status: Received by [facility] Primary Care Physician: Magali Curran DO [Primary Care Provider] - Please follow up with your Primary Care Physician in: 1 Week Please Follow Up With: Abena Melchor NP-C - Dr. Giles- Pulmonary office When: 2 Weeks Please Follow Up With: Malena Sanchez MD - Female urology When: [phone] Please Follow Up With: June Guzman DO - Nephrology When: [phone] Disposition: Home Minutes spent on discharge:: 35 Patient Condition:: Stable Medical Necessity - Tobacco Use Smoking Status: Never smoker Tobacco Use: Non-smoker Meaningful Use Info Meaningful Use Diagnoses (Choose all that apply): VTE - VTE Anticoag overlap given w/in hospital stay or rx'd at dc?: Yes Pt receive overlap for 5 days?: Yes <Rosalba Whitfield - Last Filed: 04/19/19 09:08> Discharge Date and Diagnosis - Secondary Discharge Diagnosis Chronic Problems Hyperlipidemia (Chronic) Hypertension (Chronic) Type 2 diabetes mellitus (Chronic) CRI (chronic renal insufficiency) (Chronic) Hospital Course and Treatment Summary of Care Provided: This patient was seen in conjunction with Antonieta Gallagher NP. I have independently interviewed and examined the patient and reviewed pertinent historical, laboratory, and other data. Please refer to her note for patient's presentation, findings, and recommendations. 58-year-old female past medical history of type II DM, hypertension, hypothyroidism, morbid obesity who comes in with progressive shortness of breath found to have acute extensive bilateral PE on CT of the chest. Patient was managed on Lovenox and transitioned to Eliquis. Her EF on 2D echo was 60%, RV. Patient required oxygen. She was kept on routine treatment with use of incentive spirometer. She did not qualify for oxygen at discharge. She will follow-up with her primary care doctor as well as a pharmacology professor in the outpatient. She was discharged on Eliquis. On the day of discharge, patient was seen and examined. She denied any new complaints. Physical Exam: Gen: AO x3, comfortable, on 2L oxygen, not pale, not jaundiced, alert oriented x3 CVS:HS I +II, regular, no murmurs RESP: Diminished at lung bases GI: BS present and normal, nontender, no palpable organs EXT:No edema - Physical Exam Vitals/I&O's: Vital Signs Temp Pulse Resp BP Pulse Ox 97.6 F L 80 16 145/93 H 92 04/17/19 12:19 04/17/19 12:19 04/17/19 12:19 04/17/19 12:19 04/17/19 12:19 Oxygen Flow Rate (L/min) 2 Oxygen Delivery Method Room Air Weight: 107.3 kg Body Mass Index (BMI) 41.9 Intake and Output for Last 24 Hours 04/17/19 04/18/19 04/19/19 23:59 23:59 23:59 Intake Total 100 / 100 Balance 100 / 100 Code Visit OBSV E&M: 90421 Observation care discharge
[2019-04-17 11:45] LABS: Bedside Glucose 222 mg/dL (70-110)
--- NOTE | 2019-04-17 12:17 | PHA.DC.MC ---
Pharmacy Service has performed discharge medication reconciliation and counseling for this patient. 1. APIXABAN 10MG PO BID X 6 DAYS THEN 5MG PO BID THEREAFTER The patient's discharge medication list was reviewed for discrepancies and discrepancies were resolved. Home Medications Atorvastatin Calcium [Lipitor] 20 mg PO QHS 04/15/19 Dulaglutide [Trulicity] 1.5 mg SQ TH 04/15/19 Glipizide 10 mg PO BID 04/15/19 Levothyroxine Sodium [Synthroid] 25 mcg PO DAILY 04/15/19 Oxybutynin Chloride [Oxybutynin Chloride ER] 20 mg PO DAILY 04/15/19 Apixaban [Eliquis] 10 mg PO 0600,1800 #72 tab 04/16/19 Lisinopril [Zestril] 10 mg PO DAILY #30 tab 04/17/19 The patient was counseled on the following discharge medications and changes in medications for homegoing were reviewed. The Reason for Use, instructions for use, and potential side effects were reviewed for all new medications. The patient's questions regarding all of their medications were answered. The patient was able to verbally demonstrate an understanding of their discharge medications.
--- NOTE | 2019-04-17 12:31 | CASEMGMT ---
Pt does not qualify for home oxygen at this time per Adilia ZENG. This RN CM to room to discuss this as pt is curious about out of pocket cost for home oxygen at this time. This RN CM answered all pt questions and provided list of local DME companies at this time. This also went over [employer] co-pay card with instructions for activation, voices understanding. Pt states she may get a pulse ox for home and just monitor her oxygen levels until f/u with pulmonary. Pt to let Adilia ZENG know if she would like to pay out of pocket for oxygen prior to discharge. Pt states that she already feels much better since she came in. Pt voices no further questions/concerns/needs at this time. Geovanni ZENG CM
== END 2019-04-17 11:15 | disposition home or self-care (01) ==
LOC: ED 16:23 → PCU 16:35
PROVIDERS: Admitting Provider Family Medicine; Emergency Provider Emergency Medicine; PCP Internal Medicine; Referring Provider Family Medicine; Visit Provider Internal Medicine
DX: I26.99 Other pulmonary embolism without acute cor pulmonale (principal); I12.9 Hypertensive chronic kidney disease with stage 1 through stage 4 chronic kidney disease, or unspecified chronic kidney disease; E11.22 Type 2 diabetes mellitus with diabetic chronic kidney disease; N18.3 Chronic kidney disease, stage 3 (moderate); I08.1 Rheumatic disorders of both mitral and tricuspid valves; E78.5 Hyperlipidemia, unspecified; E66.01 Morbid (severe) obesity due to excess calories; E03.9 Hypothyroidism, unspecified; R91.8 Other nonspecific abnormal finding of lung field; Z68.41 Body mass index [BMI] 40.0-44.9, adult; Z71.3 Dietary counseling and surveillance; Z79.899 Other long term (current) drug therapy; Z79.84 Long term (current) use of oral hypoglycemic drugs; Z86.718 Personal history of other venous thrombosis and embolism; R94.31 Abnormal electrocardiogram [ECG] [EKG]
CPT/HCPCS: 36415; 71046; 71275; 80048; 80061; 82962; 83880; 84484; 85025; 85379; 93005; 93306; 93970; 96360; 96361; 96372; 99218; 99285; J7030; Q9957; Q9967; A4216; G0378

== ENCOUNTER 2019-04-20 09:58 | Emergency (ER) | payer OTHER, SELFPAY ==
[2019-04-15 18:16] VITALS: BMI 41.9
[2019-04-20 09:59] VITALS: BP 165/92; PULSE 84; RESP 18; TEMP 36.9; O2SAT 92; BMI 42.7
[2019-04-20 10:14] VITALS: BP 158/93; PULSE 87; RESP 34; O2SAT 94
--- NOTE | 2019-04-20 10:21 | EKG12_ITS ---
Test Reason : Blood Pressure : / mmHG Vent. Rate : 089 BPM Atrial Rate : 089 BPM P-R Int : 160 ms QRS Dur : 080 ms QT Int : 386 ms P-R-T Axes : 032 -10 -33 degrees QTc Int : 469 ms Normal sinus rhythm T wave abnormality, consider inferior ischemia T wave abnormality, consider anterolateral ischemia Prolonged QT Abnormal ECG Confirmed by RICHARD STRANGE, JHONATAN ([id number]), avid editor CANDACE GREY ([id number]) on 04/22/2019 2:12:38 PM Referred By: EVE Confirmed By:REGGIE RAMOS MD
[2019-04-20 10:34] LABS: Absolute Lymphocyte Count 2.62 X10^3/uL (0.83-4.51); Absolute Neutrophil Count 8.4 X10^3/uL (2.0-7.7); Basophil# 0.04 X10^3/uL; Basophil% 0.3 % (0-1); Eosinophil# 0.13 X10^3/uL; Eosinophils% 1.1 % (0-5); Hematocrit 43.4 % (37-47); Hemoglobin 14.2 g/dL (12.0-15.0); Lymphocyte # 2.62 X10^3/ul (4.0); Lymphocyte % 21.9 % (19-41); Mean Corp Hgb Conc 32.7 g/dL (32-36); Mean Corpuscular Hgb 29.3 pg (27.0-32.0); Mean Corpuscular Volume 89.7 fL (81-99); Mean Platelet Vol. 10.2 fl (6.2-12.0); Monocyte# 0.74 X10^3/uL; Monocyte% 6.2 % (0-10); NRBC Flagged by Analyzer 0 % (0-5); Neutrophil # 8.39 X10^3/uL (2.7-7.7); Neutrophil % 70.1 % (47-70); Platelet Count 274 K/mm3 (150-450); RBC Distribution Width CV 13.8 % (11.6-14.6); RBC Distribution Width SD 44.6 fl (35.1-43.9); Red Blood Count 4.84 M/mm3 (4.2-5.4)
[2019-04-20] MEDS: 0.9% Normal Saline 1,000 ML 150 ML IV (10:46)
[2019-04-20] MEDS: Ondansetron 4 MG/2 ML Vial IV ×2 (10:47→13:06)
[2019-04-20] MEDS: Morphine 4 MG/ML Syringe IV ×2 (10:47→13:06)
[2019-04-20 10:50] VITALS: BP 166/91; PULSE 89; RESP 32; O2SAT 90
[2019-04-20 10:51] VITALS: RESP 26; O2SAT 95
[2019-04-20 10:53] LABS: Anion Gap 7 (5-15); BUN 18 mg/dL (7-18); BUN/Creat Ratio 13.8 RATIO (10-20); Calcium,Total 9.6 mg/dL (8.5-10.1); Chloride 107 mmol/L (98-107); EST Glomerular Filtration Rate 44 mL/min (>60); Est Glom Filt Rate - Afr Amer 54 mL/min (>60); Estimated Creatinine Clearance 38.07 ml/min; Glucose 151 mg/dL (74-106); Potassium 3.5 mmol/L (3.5-5.1); Sodium Level 140 mmol/L (136-145)
--- NOTE | 2019-04-20 11:20 | CT_ITS ---
STUDY: CTA CHEST REASON FOR EXAM: Female, 58 years old. BACK/CHEST PAIN, HX PE 04/15/2019 RADIATION DOSAGE (If Supplied By Facility): CTDIvol = ( 12.66 ) mGy, DLP = ( 475.64 ) mGycm TECHNIQUE: The examination was performed with the intravenous administration of IV 100mL Isovue-300. Post-processing of the angiographic images was performed, with multiplanar reformation and 3D reconstruction. Individualized dose optimization techniques were used for this CT. COMPARISON: 04/15/2019 FINDINGS: Bilateral partially occlusive pulmonary artery emboli are redemonstrated at the junctions of the main branches extending into multiple segmental branches. There is slight reduction of thrombus burden; for instance left upper lobe segmental branch image 128 comparing to image 127 of the prior study. RV: LV ratio measures less than 1 (no evidence of right heart strain). There is atherosclerotic calcification of the aortic arch with tortuosity. 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 There is no demonstrated aortic dissection. Normal heart size and pericardium. Normal mediastinum. Normal hilar regions. Normal visualized trachea and bronchi. The lungs are under expanded. Increasing atelectasis of the bilateral lower lobes but no cavitating entity. Localized opacity in the anterior left upper lobe is decreasing. A small 4-5 mm nodule is present in the superior segment of the right lower lobe on image 138 of series 2, stable. A 6-7 mm nodule is present in lateral subpleural region of the right middle lobe see image image #80. The lateral right lower lobe nodule on image 71 of the prior study is obscured due to atelectasis. 3-4 mm nodule in the lateral right lower lobe on image 106 is stable, when directly compared side by side. Normal chest wall structures. No sizable pleural effusion. There are degenerative changes of thoracic spine. Normal visualized upper abdomen. CT/CTA Chest W/WO Contrast IMPRESSION: 1. Redemonstration of significant bilateral pulmonary artery emboli with only slight reduction in thrombus burden. No saddle embolus. No CT evidence of right heart strain. 2. Grossly similar (short term follow-up) nodules detailed above, one of which is obscured by atelectasis. 3. Decreasing left upper lobe localized consolidation/pneumonia. Electronically Signed: Keith Peterson MD ([place]) at 12:20 EST , Service support ,
[2019-04-20 12:51] LABS: Bacteria 0 SEEN /hpf (None Seen); Mucous, Urine 0 SEEN /hpf (<or=2+); Red Blood Cells-Urine 0 SEEN /hpf (0-5); White Blood Cells 0 SEEN /hpf (0-5)
[2019-04-20 12:54] LABS: Color, Urine Yellow (Yellow); Glucose, Dipstick Normal (Normal); Ketone-Dipstick Negative (Negative); Leukocyte Esterase-Dipstick Negative /ul (Negative); Nitrite-Dipstick Negative (Negative); Occult Blood-Urine Negative /ul (Negative); Protein-Dipstick Negative (Negative); Specific Gravity, Urine 1.015 (1.002-1.030); Urine Bilirubin Dipstick Negative (Negative); Urine Clarity Clear (Clear); Urine Urobilinogen Normal (Normal)
--- NOTE | 2019-04-20 12:59 | ED.DCSUM_ITS ---
- ER Visit Summary Date of Service: 04/20/19 Chief Complaint: [Back pain] History of Present Illness: The patient is a 58 F [presents to the emergency department complaint of back pain that started yesterday. Patient states the pain initially was intermittent but now is continuous. Describes it as in her right upper back. Patient has intermittent sharp stabbing pains that at times radiate through to the front of the chest. Denies any trauma to her back. Patient states that she was recently discharged from the hospital after being diagnosed with pulmonary emboli. Patient at that time was seen for shortness of breath. Patient denies any difficulty breathing at this time. Patient states that she did check her pulse ox in the middle the night and at times it was 88 to 90% but with getting up and moving around and got up into the 90s low 90s. Patient denies any fever or cough. She denies any hemoptysis.] Physical Examination: [HEENT-PERRLA, EOMI. Cranial nerves II through XII grossly intact. TMs clear. Mucous membranes moist. No adenopathy. Cardiovascular-regular rate and rhythm without murmur or ectopy Lungs-clear to auscultation, chest wall stable without crepitus or subcu emphysema Abdomen-normoactive bowel sounds, soft, nontender, no rebound or rigidity, no peritoneal signs. Back exam-patient has tenderness to palpation over the right upper paraspinal musculature that seems to reproduce her pain. No real CVA tenderness on exam. Negative straight leg raises. Deep tendon reflexes are plus 2 out of 4 bilaterally at the patella and Achilles. Patient has normal 5 extension. Extremities-intact ?4, normal range of motion, normal pulses, atraumatic] Test Results: [EKG obtained arrival shows sinus rhythm with a ventricular rate of [address] changes noted. Troponin was less than 0.015. CBC with differential showed a white count 12.0, hemoglobin 14, hematocrit 43, platelets 274. Chemistries unremarkable. Glucose was 151. Repeat CT scan of the chest with IV contrast showed bilateral PEs with slight reduction in thrombus burden. Patient had improving/resolving left upper lobe infiltrate. Nothing else significant on exam. Analysis was unremarkable.] Emergency Department Course and Treatment: [Was medicated with morphine and Zofran and she did have pain relief with that. After returning from CT her pain returned and she received another dose of morphine and Zofran.] Treatment Plan: [Patient will be given a prescription for [place] for pain. Patient advised to follow-up with her primary care physician 3 to 5 days.] Disposition: [Discharged home in stable condition] Impression: [Back pain] This note was generated with [employer] dictation software. It may contain incorrect words, spelling, and punctuation that were not noted in review of the chart prior to signing ED Disposition - Plan for ED Patient: Referrals: Magali Curran DO [Primary Care Provider] -
[2019-04-20 13:00] LABS: Squamous Epithelial Cells - UA 0-5 SEEN /hpf (5-10)
--- NOTE | 2019-04-20 13:03 | DCINST.ED_ITS ---
ED Disposition - Plan for ED Patient: Instructions: BACK PAIN (Acute or Chronic) Prescriptions: Hydrocodone Bitart/Apap 5-325 [[place] 5MG-325MG] 1 tablet PO Q4H PRN PRN 2 Days #15 tablet PRN Reason: Pain Transmission Status: Received by [id number] Referrals: Magali Curran DO [Primary Care Provider] - 3-5 Days
--- NOTE | 2019-04-20 13:03 | ED.DEP ---
ED Disposition - Plan for ED Patient: Instructions: BACK PAIN (Acute or Chronic) Prescriptions: Hydrocodone Bitart/Apap 5-325 [[place] 5MG-325MG] 1 tablet PO Q4H PRN PRN 2 Days #15 tablet PRN Reason: Pain Transmission Status: Received by [id number] Referrals: Magali Curran DO [Primary Care Provider] - 3-5 Days
[2019-04-20 13:10] VITALS: BP 121/74; PULSE 84; RESP 19; O2SAT 98
[2019-04-20 13:21] VITALS: BP 144/78; PULSE 93; RESP 21; TEMP 37; O2SAT 96
== END 2019-04-20 13:22 | disposition home or self-care (01) ==
LOC: ED 10:39
PROVIDERS: Emergency Provider Emergency Medicine; PCP Internal Medicine
DX: M54.6 Pain in thoracic spine (principal); I26.99 Other pulmonary embolism without acute cor pulmonale; I10 Essential (primary) hypertension; E78.00 Pure hypercholesterolemia, unspecified; Z79.02 Long term (current) use of antithrombotics/antiplatelets; Z79.899 Other long term (current) drug therapy
CPT/HCPCS: 71275; 80048; 81001; 84484; 85025; 93005; 96361; 96374; 96375; 96376; 99283; J7030; Q9967; A4216; J2405

== ENCOUNTER → 2019-04-25 | Outpatient (CLI) | payer OTHER, SELFPAY ==
[2019-04-22 12:29] VITALS: BMI 42.7
== END | disposition home or self-care (01) ==
LOC: SL 10:22
PROVIDERS: PCP Internal Medicine; Referring Provider Nurse Practitioner Acute Care; Visit Provider Nurse Practitioner Acute Care
DX: R06.02 Shortness of breath (principal)
CPT/HCPCS: 94762

== ENCOUNTER → 2019-05-15 20:00 | Outpatient (CLI) | payer OTHER, SELFPAY ==
[2019-05-02 11:20] VITALS: BMI 42.7
== END ==
PROVIDERS: PCP Internal Medicine; Referring Provider Nurse Practitioner Acute Care; Visit Provider Nurse Practitioner Acute Care
DX: G47.33 Obstructive sleep apnea (adult) (pediatric) (principal)
CPT/HCPCS: 95810

== ENCOUNTER → 2019-07-30 | Outpatient (CLI) | payer OTHER, SELFPAY ==
[2019-05-02 11:20] VITALS: BMI 42.7
== END | disposition home or self-care (01) ==
LOC: SL 13:10
PROVIDERS: PCP Internal Medicine; Visit Provider Nurse Practitioner Acute Care
DX: Z46.89 Encounter for fitting and adjustment of other specified devices (principal)

== ENCOUNTER → 2019-08-15 | Outpatient (CLI) | payer OTHER, SELFPAY ==
[2019-05-02 11:20] VITALS: BMI 42.7
--- NOTE | 2019-08-15 12:58 | CT_ITS ---
STUDY: CT CHEST WITHOUT CONTRAST REASON FOR EXAM: Female, 58 years old. FOLLOW UP LUNG NODULE, RECENT HX PE''S, HX DM RADIATION DOSAGE (If Supplied By Facility): CTDIvol = ( 20.04 ) mGy, DLP = ( 672.78 ) mGycm TECHNIQUE: Transaxial imaging was performed without the administration of intravenous contrast material. Multiplanar coronal and sagittal images were reformatted. Individualized dose optimization techniques were used for this CT. COMPARISON: Comparison is made with prior study dated April 20, 2019. FINDINGS: Stable benign-appearing bilateral axillary lymph nodes. Since prior study, there has been improved aeration at the lung bases. Mild residual changes persist. Stable appearance of the small nodules in the right lung. Mild degree of scarring in the anterior aspect of the lingular segment of the left upper lobe as well as the medial anterior aspect of the right middle lobe. There is no demonstrated pleural abnormality. Normal heart and pericardium. There are multiple small lymph nodes within the mediastinum, which are normal in size and morphology most compatible with reactive lymph hyperplasia. Normal hilar regions. Normal unenhanced pulmonary arteries. There is atherosclerotic calcification of the aortic arch . There are multi-level degenerative changes of the thoracic spine. There is no demonstrated abnormality of the visualized upper abdomen. CT/Chest without Contrast IMPRESSION: There has been improved aeration of the lung bases as compared to prior study. Stable appearance of the number and size of the pulmonary nodule seen in the right lung. Electronically Signed: Wan Haynes, at 14:51 EDT , Service support ,
--- NOTE | 2019-08-15 12:58 | ECHOCS_ITS ---
Reason For Study: DYSPNEA Procedure This was a 2D Doppler, Color Flow transthoracic echocardiogram. The study was technically difficult. Contrast injection was performed. Exam performed in department. Left Ventricle Normal LV size. The estimated ejection fraction is 60 %. Diastolic function is indeterminate. No regional wall motion abnormalities noted. Right Ventricle Normal right ventricle. Normal systolic function. Atria Normal left atrium. Normal right atrium. No doppler evidence for ASD. Mitral Valve There is no mitral valve stenosis. No mitral valve insufficiency. Tricuspid Valve There is no tricuspid stenosis. Trivial tricuspid valve insufficiency. Pulmonary artery systolic pressure is 30 mmHg. Aortic Valve Trisinus/trileaflet aortic valve. There is no aortic stenosis. No aortic valve insufficiency. Pulmonic Valve There is no pulmonic valvular stenosis. No pulmonic valve insufficiency. Great Vessels Normal aortic root. Pericardium/Pleural No pericardial effusion. Medication 22 gauge I.V. with prn adaptor inserted into right arm. Diluted definity 3.0ml given slow IV push to enhance endocardial definition. MMode/2D Measurements & Calculations LVIDd: 5.0 cm IVSd: 0.83 cm Ao root diam: 3.2 cm LVIDs: 3.2 cm LVPWd: 0.87 cm RVDd: 2.9 cm FS: 35.8 % LAV(MOD-bp): 41.1 ml EDV(MOD-sp4): 71.6 ml EDV(MOD-sp2): 52.6 ml LAV(MOD-bp) Indexed: 19.8 ml/m2 ESV(MOD-sp4): 41.2 ml EF(MOD-sp2): 41.9 % LAV(MOD-sp2): 36.3 ml EF(MOD-sp4): 42.4 % LAV(MOD-sp4): 42.3 ml SV(MOD-sp4): 30.3 ml SV(MOD-sp2): 22.0 ml LA A4 area: 16.1 cm2 LA dimension(2D): 3.4 cm RA A4 area: 14.7 cm2 Time Measurements MV dec time: 0.22 sec Doppler Measurements & Calculations MV E max chano: 45.1 cm/sec Lat Peak E' Chano: 6.1 cm/sec Med Peak E' Chano: 5.0 cm/sec MV A max chano: 55.7 cm/sec E/E' lat: 7.4 E/E' med: 9.0 MV E/A: 0.81 Ao V2 max: 102.7 cm/sec LV V1 max: 89.3 cm/sec TR max chano: 314.1 cm/sec Ao max P.2 mmHg LV V1 max P.2 mmHg TR max P.5 mmHg Interpretation Summary The estimated ejection fraction is 60 %. Diastolic function is indeterminate. The study was technically difficult. Contrast injection was performed. Ordering Physician: Abena Melchor Referring Physician: EMERALD WIGGINS Performed By: Jojo Rosario, CHRIS, RVT
== END | disposition home or self-care (01) ==
LOC: CVS 12:58
PROVIDERS: PCP Internal Medicine; Referring Provider Nurse Practitioner Acute Care; Visit Provider Nurse Practitioner Acute Care
DX: R06.02 Shortness of breath (principal); R06.00 Dyspnea, unspecified
CPT/HCPCS: 71250; 93306; Q9957; A4216; C8929

== ENCOUNTER → 2020-01-19 13:41 | Outpatient (CLI) | payer OTHER, SELFPAY ==
[2019-05-02 11:20] VITALS: BMI 42.7
--- NOTE | 2020-01-19 13:53 | RAD_ITS ---
STUDY: X-RAY - LUMBOSACRAL SPINE REASON FOR EXAM: Female, 59 years old. PAIN IN LOWER BACK FOR AT LEAST A YEAR OR MORE GETTING WORSE. NO KNOWN RECENT INJURY. TECHNIQUE: 7 view(s) of the lumbosacral spine were obtained. COMPARISON: None FINDINGS: Normal lumbar lordosis. There are 6 lumbar type vertebral bodies (nonrib-bearing) There is scoliosis of the thoracolumbar junction directed towards the left and dextroscoliosis of the lumbar spine. There is anterolisthesis of L5-L6 (grade 1) similar on flexion, extension and neutral views. There is diffuse demineralization with multi-level endplate spondylosis. There is multi-level degenerative disc disease with multi-level disc space narrowing. No pars interarticularis defects. Normal bilateral sacral ala, sacroiliac joints, and visualized sacrum. Normal visualized soft tissue structures. RAD/L/S Spine Comp/w Bending Views IMPRESSION: 1. Multilevel degenerative disc disease and facet arthropathy. 2. Grade 1 spondylolisthesis of L5-L6. Electronically Signed: Keith Peterson MD ([place]) at 15:35 EST , Service support ,
== END ==
PROVIDERS: PCP Internal Medicine; Visit Provider Anesthesiology Pain Medicine
DX: M54.5 Low back pain (principal)
CPT/HCPCS: 72114

== ENCOUNTER → 2020-09-04 15:11 | Outpatient (CLI) | payer OTHER, SELFPAY ==
[2020-02-13 11:02] VITALS: BMI 40.4
--- NOTE | 2020-09-04 15:13 | CT_ITS ---
STUDY: CT CHEST WITHOUT CONTRAST REASON FOR EXAM: Female, 59 years old. Follow up on nodules RADIATION DOSAGE (If Supplied By Facility): CTDIvol = ( 19.77 ) mGy, DLP = ( 701.63 ) mGycm TECHNIQUE: Transaxial imaging was performed without the administration of intravenous contrast material. Multiplanar coronal and sagittal images were reformatted. Individualized dose optimization techniques were used for this CT. COMPARISON: Comparison is made with prior examination dated 08/15/2019. FINDINGS: Stable small benign-appearing bilateral axillary lymph nodes. Stable appearance of the small peripheral nodules in the right lung. Mild degree of scarring is seen in the lingular segment of the left femoral. Minimal scarring in the medial aspect of the right middle lobe. There is no demonstrated pleural abnormality. Normal heart and pericardium. There are multiple small lymph nodes within the mediastinum, which are normal in size and morphology most compatible with reactive lymph hyperplasia. Normal hilar regions. Normal unenhanced pulmonary arteries. There is atherosclerotic calcification of the aortic arch . There are multi-level degenerative changes of the thoracic spine. There is no demonstrated abnormality of the visualized upper abdomen. CT/Chest without Contrast IMPRESSION: Stable examination. Electronically Signed: Wan Haynes MD at 15:36 EDT , Service support ,
== END ==
PROVIDERS: PCP Internal Medicine; Referring Provider Nurse Practitioner Acute Care; Visit Provider Nurse Practitioner Acute Care
DX: R91.8 Other nonspecific abnormal finding of lung field (principal)
CPT/HCPCS: 71250

== ENCOUNTER 2021-02-18 16:43 | Outpatient (CLI) | payer OTHER, SELFPAY ==
[2021-02-18 16:53] VITALS: BP 165/77; PULSE 102; RESP 20; TEMP 36.4; O2SAT 100; BMI 41.1
[2021-02-18] MEDS: 0.9% Saline Lock 10 ML Syringe IV (17:04)
[2021-02-18 18:15] VITALS: BP 122/70; PULSE 86; RESP 16; TEMP 36.8; O2SAT 95
[2021-02-18 19:15] VITALS: BP 103/68; PULSE 84; RESP 16; TEMP 36.6; O2SAT 98
== END 2021-02-18 19:15 | disposition home or self-care (01) ==
LOC: MS3OUT 16:43 → MS3 16:46
PROVIDERS: PCP Internal Medicine; Referring Provider Nurse Practitioner Acute Care; Visit Provider Nurse Practitioner Acute Care
DX: Z23 Encounter for immunization (principal); U07.1 COVID-19
CPT/HCPCS: J7050; M0245; Q0245; A4216

== ENCOUNTER 2021-10-18 09:20 | Day surgery (SDC) | payer OTHER, SELFPAY ==
--- NOTE | 2021-10-14 13:05 | EKG12_ITS ---
Test Reason : PREOP Blood Pressure : / mmHG Vent. Rate : 074 BPM Atrial Rate : 074 BPM P-R Int : 106 ms QRS Dur : 068 ms QT Int : 372 ms P-R-T Axes : 037 049 036 degrees QTc Int : 412 ms Sinus rhythm with short RI Otherwise normal ECG Confirmed by PURA STRANGE, GLENIS ([id number]), subeditor CANDACE GREY ([id number]) on 10/15/2021 9:33:02 AM Referred By: Azar Sevilla Confirmed By:GLENIS NEVES MD
[2021-10-14 13:30] LABS: Hematocrit 43.8 % (37-47); Hemoglobin 14.3 g/dL (12.0-15.0); Mean Corp Hgb Conc 32.6 g/dL (32-36); Mean Corpuscular Hgb 29.7 pg (27.0-32.0); Mean Corpuscular Volume 90.9 fL (81-99); Mean Platelet Vol. 9.5 fl (6.2-12.0); Platelet Count 366 K/mm3 (150-450); RBC Distribution Width CV 13.5 % (11.6-14.6); RBC Distribution Width SD 45.2 fl (35.1-43.9); Red Blood Count 4.82 M/mm3 (4.2-5.4); White Blood Count 9.9 K/mm3 (4.4-11.0)
[2021-10-14 13:43] LABS: Hemoglobin A1c 7.1 % (3.8-5.6)
[2021-10-14 14:45] LABS: Anion Gap 7 (5-15); BUN 22 mg/dL (7-18); BUN/Creat Ratio 15.3 RATIO (10-20); Calcium,Total 9.5 mg/dL (8.5-10.1); Chloride 106 mmol/L (98-107); Creatinine, Serum 1.44 mg/dL (0.55-1.02); EST Glomerular Filtration Rate 39 mL/min (>60); Est Glom Filt Rate - Afr Amer 47 mL/min (>60); Glucose 122 mg/dL (74-106); Potassium 4.1 mmol/L (3.5-5.1); Sodium Level 143 mmol/L (136-145); Thyroid Stim Hormone (TSH) 2.55 uIU/mL (0.358-3.74)
[2021-10-18] VITALS (14 sets, daily range): BP systolic 102–134; BP diastolic 48–91; PULSE 59–95; RESP 16–24; TEMP 35.8–36.6; O2SAT 89–100; BMI 38.2
[2021-10-18] MEDS: Lactated Ringers 1,000 ML 15 ML IV ×2 (09:25→13:05)
--- NOTE | 2021-10-18 09:26 | PCM.HP.BLA ---
History and Physical Date of Admission: 10/18/21 Intake Vital Signs ? 02/19/2116:53 09/13/2208:42 Height 5 ft 4 in 5 ft 3 in Weight: 240 lb 226 lb 3 oz BMI 41.1 40.0 BP 165/77 H 125/84 H Blood Pressure Location ? Rt brachial Position Sitting Sitting Respiration 20 H 16 Pulse 102 H 84 Pulse Source ? Monitor Temp 97.6 F L 97.3 F L Temp Source Oral Temporal Pulse Oximetry (%) 100 98 Oxygen Delivery Method ? room air Intake Visit Reasons:?UMBILICAL HERNIA Chief Complaint: Umbilical hernia Sourcing Intern Required: No Is patient in pain?: No Allergies No Known Allergies Allergy (Verified 09/13/21 09:43) Medications atorvastatin 20 mg tablet 20 mg PO QHS cholesterol 04/15/19 [History Confirmed 09/13/21] dulaglutide 1.5 mg/0.5 mL subcutaneous pen injector 1.5 mg SQ TH dm 04/15/19 [History Confirmed 09/13/21] levothyroxine 25 mcg tablet 25 mcg PO DAILY thyroid 04/15/19 [History Confirmed 09/13/21] oxybutynin chloride 10 mg tablet,extended release 24 hr 20 mg PO DAILY bladder 04/15/19 [History Confirmed 09/13/21] lisinopril 10 mg tablet 10 mg PO DAILY #30 tabs 04/17/19 [Rx Confirmed 09/13/21] biotin 1,000 mcg chewable tablet 1,000 mcg PO DAILY 05/02/19 [History Confirmed 09/13/21] insulin glargine 100 unit/mL (3 mL) subcutaneous pen (Lantus Solostar U-100 Insulin) 30 unit subcut BID 11/26/20 [History Confirmed 09/13/21] metformin 1,000 mg tablet 1,000 mg PO BID 11/26/20 [History Confirmed 09/13/21] apixaban 5 mg tablet (Eliquis) 5 mg PO BID #180 tabs 03/08/21 [Rx Confirmed 09/13/21] PFSH Medical History?(Updated 09/13/21 @ 10:[address] Azar Sevilla MD) Acute electrocardiogram changes Chest pain CRI (chronic renal insufficiency) Elevated troponin Hyperlipidemia Hypertension Pulmonary embolism, bilateral Type 2 diabetes mellitus Surgical History?(Updated 09/13/21 @ 09:40 by Audrey Person) H/O prior ablation treatment H/O vaginal hysterectomy Family History?(Updated 09/13/21 @ 09:41 by Audrey Person) Mother Alzheimer's diseaseFather Heart disease CVA (cerebral vascular accident) Diabetes Hypertension Arthritis Social History? Smoking Status:? Never smoker alcohol intake:? current details:? Occasionally HPI HPI HPI: SCOT MOSES, is a 60 F who presents to the office today for umbilical hernia.? The patient reports is been growing larger over the last 4 months.? It is uncomfortable.? She denies any nausea or vomiting.? She has no fevers or chills. ROS General General: No weight change, appetite, fatigue, colon cancer, breast cancer or weakness HEENT HEENT: No difficulty swallowing, eye injury, eye surgery, swollen glands or hoarseness Endo Endocrine: Yes diabetes mellitus; No thyroid disease, thyroid cancer, Hair loss, heat intolerance or cold intolerance Skin Skin: No rash or changing moles Breast Breast: No left breast lump, right breast lump, nipple discharge, breast pain, abnormal mammogram, abnormal US or breast enlargement Musc Musculoskeletal: Yes back problems and arthritis; No rheumatoid arthritis, gout or joint pain Cardio Cardiovascular: Yes high blood pressure; No murmur, pacemaker, heart disease, atrial fibrillation, heart attack, heart stent, palpitations, shortness of breat with exertion or chest pain Psych Psychiatric: No depression, anxiety or hearing voices Resp Respiratory: Yes shortness of breath, Yes sleep apnea, No cough, No COPD, No asthma, No emphysema and No wheezing Gastro Gastrointestinal: No abdominal pain, No nausea or vomiting, No diarrhea, No constipation, No blood in stool, Yes acid reflux, No hemorrhoids, No ulcers, No gallbladder problem and No black,tarry stools [place] Hematologic: Yes blood thinners, No blood disorders, No bleeding, No anemia and No blood clots Neuro Neurologic: No system reviewed and no additional complaints, except as documented, No as per HPI, No abnormal gait, No abnormal hearing, No abnormal movements, No abnormal speech, No behavioral changes, No burning sensations, No confusion, No convulsions, No disequilibrium, No dizziness, No localized weakness, No frequent falls, No headache(s), No lack of coordination, No loss of vision, No memory loss, No numbness, No other visual disturbances, No radicular pain, No restless legs, No sensory deficit, No syncope, No tingling, No tremor(s), No weakness and No other Exam Const General: cooperative Orientation: alert and oriented x3 HENMT Head: normal to inspection Neck Neck: normal visual inspection and full ROM Chest Chest palpation & inspection: normal inspection of the chest Resp Effort & Inspection: normal respiratory effort Auscultation: clear to auscultation bilaterally Cardio Rate: regular rate Rhythm: regular rhythm GI Inspection: non-distended Palpation: soft, hernia umbilical and nontender Skin General: no rashes or lesions noted Neuro General: patient alert and patient oriented x3 Extrem General: full ROM Psych Appearance: grossly normal Mental Status: mental status grossly normal Assessment and Plan Assessment and Plan (1) Umbilical hernia: ?Status:?Acute ?Plan: The patient has an umbilical hernia which I was unable to fully reduce due to discomfort.? Due to her body habitus I recommend laparoscopic approach.? I discussed robotic assisted laparoscopic umbilical hernia repair with mesh.? I discussed mesh placement in detail.? I discussed the risks of the procedure such as bleeding, infection, injury to underlying organs or recurrence.? Patient understands the risks and will proceed with robotic assisted surgery for her umbilical hernia.? She will hold her Eliquis for 2 days prior to surgery Azar Sevilla MD Pager: [facility] [address] [place] [address], [address] [place] [phone] Office: I have re-examined the patient. There are no clinical changes since date of exam.
[2021-10-18 10:25] LABS: Bedside Glucose 117 mg/dL (74-106)
[2021-10-18] MEDS: Cefazolin 2 GM in 0.9% Normal Saline 100 ML IV (11:06)
[2021-10-18] MEDS: Bupivacaine 0.25% 30 ML Vial (12:00)
--- NOTE | 2021-10-18 12:04 | PCM.OPRPT ---
Report of Operation Date of Procedure: 10/18/21 Pre-Operative Diagnosis: Umbilical hernia Post-Operative Diagnosis: Umbilical hernia Surgery/Procedure Performed:: Robotic assisted laparoscopic umbilical hernia repair with mesh Description of Procedure: Patient was brought back to the operating room and general anesthesia was induced. The abdomen was prepped and draped in usual sterile fashion. An incision was made in the left upper quadrant and the fascia was grasped and elevated and a Veress needle was placed into the abdomen and a drop test was performed. The abdomen was then insufflated 15 mmHg and the Veress needle was removed and a port was placed. The camera was placed into the abdomen and inspected for injuries and there were none. Under direct visualization a left lateral port and a left lower quadrant port were placed. Next the robot was docked. Using electrocautery scissors an incision was made the peritoneum and this was carried toward the hernia until the hernia sac was reduced and enough dissection was carried laterally to allow for coverage of the hernia. Next oh strata fix suture was used to close the fascial defect in 2 layers. Fascial defect was approximately 3 cm. Next a 10 x 10 cm piece of ProGrip was placed into the abdomen and unfolded over the hernia defect. This allowed for adequate coverage. Next the peritoneum was reapproximated using a running 3 OV lock suture. The hole in the peritoneum in the lateral aspect was also closed with a running 3-0V lock suture. At the end of the procedure the entire mesh was covered with peritoneum. Next the abdomen was allowed to desufflate and the ports were removed. The incisions were injected with local anesthetic and closed with interrupted 4-0 Monocryl suture. Steri-Strips and bandage were applied. To maintain pressure over the umbilical stalk several cotton balls and a dressing were placed over the umbilicus. Grafts/Implants Used: ProGrip mesh Admit VTE Documentation VTE Mechan Device Prophylaxis: SCD's
--- NOTE | 2021-10-18 12:07 | DCINST_ITS ---
Discharge Instructions Procedure Hernia Diet Discharge Diet: Light diet - advance as tolerated Activity Discharge Activity: May Not Drive (for 2-3 days or while taking narcotic pain meds.) and May Shower (with the bandage in place 1-2 days after surgery.) Lifting Restrictions: 15 pounds for 6 weeks. Additional Activity Instructions:: Climbing stairs is fine, walking is encouraged. Sitting in bed may be uncomfortable. Sitting up using your lateral muscles (sitting up sideways) is usually more comfortable. Do not drive, work heavy equipment of sign legal documents for 24 hours. Pain medications may cause nausea, you should typically eat light foods as you take your pain medications. Pain medications may also cause constipation. If you have difficulty with this, discuss with your doctor. The cotton balls placed in the umbilical skin are there for pressure. Remove that bandage and the cotton balls in 3 to 4 days. Resume blood thinners on Monday. Dressing / Incision Call your doctor if your incision/area has: Continuous Slow Oozing, Sudden Increased Bleeding, Increased Pain/ Swelling, Increased Redness and Foul Smelling Discharge Call your doctor if you observe: Fever of 101 or Higher Suture Line Care: Avoid Pulling/Pushing and Avoid Pinching/Bending Remove Dressing in: 2 days (Remove clear bandages in 2 days, remove Steri-Strips in 7 to 10 days.) Cleanse incision/area with: Soap & Water Follow Up Care Please Follow Up With: Azar Sevilla MD When: Please call to schedule 2 week follow up appointment. [phone] Test Results: Test results from this visit will be discussed in further detail at your follow- up appointment, if applicable. Discharge Plan Admission Attending Provider: Azar Sevilla Primary Care Provider: Magali Curran Discharge Orders/Prescriptions Prescriptions: New oxycodone-acetaminophen [Percocet] 5-325 mg tablet 1 tab PO Q4H PRN (Reason: pain) 5 Days Qty: 14 0RF No Action biotin 1,000 mcg tablet,chewable 1,000 mcg PO DAILY Lantus Solostar U-100 Insulin 100 unit/mL (3 mL) insulin pen 30 unit SC BID metformin 1,000 mg tablet 1,000 mg PO BID atorvastatin 20 MG tablet 20 mg PO QHS oxybutynin chloride 10 MG tablet extended release 24hr 20 mg PO DAILY levothyroxine 25 MCG tablet 25 mcg PO DAILY dulaglutide 1.5 mg/0.5 mL pen injector 1.5 mg SQ CASTELLANOS Label Comments: INJECT 1 PEN SUBCUTANEOUSLY EVERY WEEK lisinopril 10 MG tablet 10 mg PO DAILY Qty: 30 0RF potassium 99 mg Tablet 99 mg PO DAILY Eliquis 5 mg tablet 5 mg PO BID Referrals / Follow Up: Magali Curran DO [Primary Care Provider] - Disposition Disposition (needs filled in before D/C Order can be placed): Home, Self Care
--- NOTE | 2021-10-18 12:48 | SUR.PHASEI ---
1220 upon awakening in pacu pt appeared to be having a bronchospasm, eyes open, pupils pinpoint. ana lee suctioned pt for small amt white sputum, jaw lift done by this nurse. dr correa called to bedside. episode lasted approx 2 min then resolved on own. 1255 pt appears tearful and anxious. new order received for ativan and has been given.
[2021-10-18 13:00] LABS: Bedside Glucose 129 mg/dL (74-106)
--- NOTE | 2021-10-18 13:19 | SUR.PHASEI ---
PHASE I: REPORTS FEELING LOTS OF TENSION, ANXIOUS, I JUST CAN'T RELAX. AT BEDSIDE PER PATIENT REQUEST. HYPERVENTILATING AT TIMES. ATIVAN GIVEN AT 1243.
== END 2021-10-18 18:11 | disposition home or self-care (01) ==
LOC: SDC 09:21 → AC 09:21
PROVIDERS: Anesthesiology; PCP Internal Medicine; Referring Provider Surgery; Visit Provider Surgery
PROC: (CPT 49585; principal; 2021-10-18 10:40)
DX: K42.9 Umbilical hernia without obstruction or gangrene (principal); E11.9 Type 2 diabetes mellitus without complications; Z79.4 Long term (current) use of insulin; I10 Essential (primary) hypertension; E78.00 Pure hypercholesterolemia, unspecified; E07.9 Disorder of thyroid, unspecified; G47.33 Obstructive sleep apnea (adult) (pediatric); K21.9 Gastro-esophageal reflux disease without esophagitis; Z78.0 Asymptomatic menopausal state; Z79.01 Long term (current) use of anticoagulants; Z79.890 Hormone replacement therapy; Z79.899 Other long term (current) drug therapy; Z86.711 Personal history of pulmonary embolism
CPT/HCPCS: 49585; 00750; 36415; 80048; 82962; 83036; 84443; 85027; 93005; J7120; J2405

== ENCOUNTER → 2022-06-23 | Outpatient (CLI) | payer OTHER, SELFPAY ==
--- NOTE | 2022-06-23 10:38 | BI_ITS ---
MAMMOGRAPHY - BILATERAL SCREENING REASON FOR EXAM: Female, 61 years old. Routine annual screening examination. PERTINENT HISTORY: Aunt with breast cancer. TECHNIQUE: Digital bilateral breast barrie (3D mammographic acquisition) in the CC and MLO projections. 2-D mediolateral oblique (MLO) and craniocaudad (CC) views of both breasts were obtained. CAD: Full Field Digital Mammography with Computer Added Detection was performed. COMPARISON: Comparison is made with prior outside examination dated February 13, 2014. FINDINGS: Breast Composition: There are scattered areas of fibroglandular density. There are no dominant masses or suspicious calcifications. Stable benign-appearing bilateral axillary lymph nodes. No other significant abnormalities are identified. There has been no significant change since the prior study. BI/SCRN MAMM (CAD)W/BARRIE BILAT IMPRESSION: Stable bilateral screening mammogram. Yearly follow-up mammogram recommended. (A) ASSESSMENT CATEGORY: BIRADS Category 2: Benign. A letter regarding these results will be sent to the patient by the facility within 30 days. Approximately 10% of breast cancers are not detected by mammography. A normal mammogram should not delay biopsy of a clinically suspicious abnormality. [id number] Electronically Signed: Wan Haynes MD at 13:00 EDT ,
--- NOTE | 2022-06-23 10:38 | BD_ITS ---
STUDY: DUAL ENERGY X-RAY ABSORPTIOMETRY / DXA REASON FOR EXAM: Female, 61 years old. [id number] TECHNIQUE: Bone Mineral Density (BMD) measurements of lumbar spine and bilateral hips were obtained. COMPARISON: None. FINDINGS: Lumbar Spine (L1-L4): g/cm2 (1.494) / T-score (4.1) / Z-score (5.7) Findings are suggestive of normal bone density with a low fracture risk. Left Femur Total: g/cm2 (1.053) / T-score (0.9) / Z-score (2.0) Left Femoral Neck: g/cm2 (0.801) / T-score (-0.4) / Z-score (1.0) Right Femur Total: g/cm2 (1.067) / T-score (1.0) / Z-score (2.2) Right Femoral Neck: g/cm2 (0.750) / T-score (-0.9) / Z-score (0.5) BD/Dexa Bone Density Study IMPRESSION: The patient is considered normal as outlined below according to World Bird Organization (WHO) criteria with a low fracture risk. Reference Information: The T-score is the number of standard deviations above or below the standard which is normal for young adults at their peak bone mineral density. The World Health Organization (WHO) interprets the T-scores as follows: Above -1 Normal bone density Between -1 and -2.5 Osteopenia Equal to / or below -2.5 Osteoporosis As a practical clinical guideline, osteopenia may be graded as follows: Mild -1 through -1.5 Moderate -1.6 through -2.0 Severe -2.1 through -2.4 The Z-score is the number of standard deviations above or below age-matched controls. A Z-score of less than -1.5 would be considered abnormal. References: 1. NIH Osteoporosis and Related Bone Diseases www osteo.org 2. International Society for Clinical Densitometry www iscd.org 3. National Osteoporosis Foundation www nof.org Electronically Signed: Wan Haynes MD at 12:42 EDT ,
== END | disposition home or self-care (01) ==
PROVIDERS: PCP Internal Medicine; Referring Provider Internal Medicine; Visit Provider Internal Medicine
DX: Z12.31 Encounter for screening mammogram for malignant neoplasm of breast (principal); Z78.0 Asymptomatic menopausal state
CPT/HCPCS: 77063; 77067; 77080